=== PATIENT | female | born 1950 | race Caucasian/White ===

== ENCOUNTER 2016-07-23 09:49 | Day surgery (SDC) | payer MEDICARE, OTHER ==
[2016-07-13 09:52] VITALS: BMI 29.2
[~2016-07-23 09:49] MED LIST: HEPARIN SODIUM,PORCINE 5,000 UNIT/ML 1 ML VIAL SQ ONE; LACTATED RINGERS 1,000 ML IV SCH; LIDOCAINE 1% 20 ML VIAL (10MG/ML) FOR IV START INTRADERMA PRN; ONDANSETRON 4 MG/2 ML VIAL IVP ONE; ceFAZolin 2 GM in SODIUM CHLORIDE 0.9% 100 ML IVPB ONE
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
[2016-07-23] MEDS ORDERED: ceFAZolin 1,000 MG VIAL ONE (10:40)
[2016-07-23] MEDS ORDERED: NEOSTIGMINE 1 MG/ML 10 ML VIAL ONE (10:40)
[2016-07-23] MEDS ORDERED: SUCCINYLCHOLINE CHLORIDE 100 MG/5 ML SYR IV ONE (10:40)
[2016-07-23] MEDS ORDERED: PROPOFOL 10 MG/ML 20 ML VIAL IV ONE (10:40)
[2016-07-23] MEDS ORDERED: SODIUM CHLORIDE 0.9% 100 ML BAG ONE (10:40)
[2016-07-23] MEDS ORDERED: fentaNYL (PF) 50 MCG/ML 2 ML AMP ONE (10:40)
[2016-07-23] MEDS ORDERED: GLYCOPYRROLATE 0.2 MG/ML 2 ML VIAL ONE (10:40)
[2016-07-23] MEDS ORDERED: ROCURONIUM BROMIDE 10 MG/ML 10 ML VIAL IV ONE (10:40)
[2016-07-23] MEDS ORDERED: MIDAZOLAM 2 MG/2 ML VIAL ONE (10:40)
[2016-07-23] MEDS ORDERED: BUPIVACAIN-EPI 0.25%-1:200,000 30 ML VIAL SQ ONE (11:08)
--- NOTE | 2016-07-23 11:30 | P.OP ---
Date of Procedure: 07/23/16 Preoperative Diagnosis: Cholecystitis Postoperative Diagnosis: Cholecystitis Procedure(s) Performed: Laparoscopic cholecystectomy Anesthesia: DISHA Surgeon: Iftikhar Guallpa Estimated Blood Loss (ml): 5 Pathology: other (Gallbladder) Condition: stable Disposition: PACU Description of Procedure: The patient was placed on the operating table. The patient received a general endotracheal tube anesthesia. The patients abdomen was prepped and draped in the usual sterile fashion. Through an infraumbilical stab incision, the fascia of the anterior abdominal wall was grasped with a pair of Kochers and then the Veress needle was placed in the peritoneal cavity. Position of the Veress needle was confirmed with positive drop test. The abdomen was then insufflated. After adequate insufflation, the 10 mm trocar was placed in the peritoneal cavity. Following this the laparoscope was placed in the peritoneal cavity. The patient was placed in the head-up, right side up position and then a 5 mm trocar was placed in the right lateral and right subcostal position under direct visualization. A 8 mm trocar was placed in the epigastric position. The gallbladder was grasped in the fundus and infundibulum. Traction on the gallbladder was placed in the lateral and the cephalad positions. The triangle of Calot was visualized.. The cystic duct was bluntly dissected until the union of the cystic duct and common bile duct was seen. The cystic duct was then divided and sealed with the Harmonic scissors. A PDS Endoloop was then placed throughout the cystic duct stump. The cystic artery divided and sealed with the Harmonic scissors. The gallbladder was then removed from the liver bed using Harmonic scissors. The gallbladder was then extracted through the epigastric port site. Operative field was checked for any bleeding spots and Harmonic scissors was used to coagulate the liver bed. The abdomen was irrigated. The trocars were removed. The skin was closed using interrupted 3-0 Vicryl suture. Dermabond dressing were applied. The patient tolerated the procedure well.
[2016-07-23 11:51] VITALS: TEMP 97.1
[2016-07-23] MEDS: HYDROmorphone 1 MG/ML 1 ML SYRINGE IVP PRN ×2 (11:55→12:10)
[2016-07-23] MEDS ORDERED: LACTATED RINGERS 1,000 ML IV ONE (12:00)
[2016-07-23] MEDS: MIDAZOLAM 2 MG/2 ML VIAL IV PRN ×2 (12:15→12:23)
[2016-07-23] MEDS ORDERED: KETOROLAC 30 MG/ML 1 ML VIAL IVP ONE (13:12)
[2016-07-23 13:21] VITALS: RESP 16
[2016-07-23 14:11] VITALS: BP 157/81; PULSE 53
== END 2016-07-23 14:21 | disposition home or self-care (01) ==
LOC: OR 09:49
PROVIDERS: ATTEND Surgery
DX: K81.1 Chronic cholecystitis (principal); K21.9 Gastro-esophageal reflux disease without esophagitis; I25.10 Atherosclerotic heart disease of native coronary artery without angina pectoris; I10 Essential (primary) hypertension; M79.7 Fibromyalgia; J44.9 Chronic obstructive pulmonary disease, unspecified; F17.210 Nicotine dependence, cigarettes, uncomplicated; M19.90 Unspecified osteoarthritis, unspecified site; F41.9 Anxiety disorder, unspecified; I73.9 Peripheral vascular disease, unspecified; Z79.899 Other long term (current) drug therapy; Z79.02 Long term (current) use of antithrombotics/antiplatelets; Z79.82 Long term (current) use of aspirin; Z88.5 Allergy status to narcotic agent; Z88.8 Allergy status to other drugs, medicaments and biological substances
CPT/HCPCS: 47562; 88304; J2250; J1644; J2710; J2405; J0690; J3010; J1885; J1170; J0330; J2704

== ENCOUNTER → 2016-07-31 | Outpatient (CLI) | payer MEDICARE, OTHER ==
--- NOTE | 2016-08-01 09:31 | BD ---
EXAMINATION TYPE: MG DEXA axial skeleton. DATE OF EXAM: 07/31/2016 7:47 AM COMPARISON: Prior DEXA bone scan report March 17, 2008 CLINICAL HISTORY: z13.820 screen for osteoporosis. Postmenopausal female PT IN A WHEELCHAIR Height: 60 Weight: 167 FRAX RISK QUESTIONS: Alcohol (3 or more units per day): NO Family History (Parent hip fracture): NO Glucocorticoids (More than 3mos): YES (Ex: prednisone, prednisolone, methylprednisolone, dexamethasone, and hydrocortisone). History of Fracture in Adulthood: YES Secondary Osteoporosis: NO 1. Type 1 Diabetes: NO 2. Hyperthyroidism: NO 3. Menopause before 45: ES 4. Malnutrition: NO 5. Chronic liver disease: NO Rheumatoid Arthritis: NO Current Tobacco Use: YES RISK FACTORS HISTORY OF: Other Fractures since Age 51: RT HAND When: > 50 YRS Family History of Osteoporosis: YES, MOTHER Smoke tobacco: YES, 1/2 PAC DAILY Drink Alcohol: NONE Active: MUCH SHE CAN BE, AROUND HOUSE Diet low in dairy products/other sources of calcium: NO Postmenopausal woman: HYST AT AGE 36 YRS OLD Lost more than 2 inches in height since high school: YES Adrenal Insufficiency: NO MEDICATIONS: Prednisone or other steroids: ALLERGIC TO STEROIDS, VENTOLIN INHALER, NEBULIZER TREATMENTS How Long: COPD FOR ABOUT 10+ YRS Additional Medications: BP MEDS, VALIUM PRN, VIT D3, Additional History: COPD, SPINAL CONDITIONS, PAIN, EXAM MEASUREMENTS: Bone mineral densitometry was performed using the saambaa System. Bone mineral density as measured about the Lumbar spine is: ----- L1-L4(G/cm2): 1.024 T Score Values are as follows: ----- L1: -1.7 ----- L2: -1.3 ----- L3: -1.8 ----- L4: -0.6 ----- L1-L4: -1.3 Bone mineral density has: Decreased -4.1% since study of: 03.17.2008 Bone mineral density about the R hip (g/cm2): 0.786 Bone mineral density about the L hip (g/cm2): 0.731 T Score values are as follows: -----R Neck: -1.8 -----L Neck: -2.2 -----R Intertrochanter: -1.2 -----L Intertrochanter: -1.9 Bone mineral density has: Decreased -0.2% since study of: 03.17.2008 FRAX%'S: FOR MAJOR OSTEOPOROTIC FX: 19.0%.....FOR HIP FX: 5.3% PROBABILITY OF FX IN 10 Y RS TIME IMPRESSION: Osteopenia (T Score between -2.5 and -1 as noted by T score values in the left hip and low back. Bone density is decreased are diminished from 2007 study. There is slightly increased risk of fracture an d the patient may be considered for treatment. Re-Screen 1-2 years. NOTE: T-SCORE=SD OF THE YOUNG ADULT MEAN.
--- NOTE | 2016-08-01 14:22 | MM ---
Reason for exam: screening (asymptomatic). Last mammogram was performed 2 years and 8 months ago. History: Patient is postmenopausal. Excisional biopsy of the right breast. Physical Findings: A clinical breast exam by your physician is recommended on an annual basis and results should be correlated with mammographic findings. MG 3D Screening Mammo W/Cad Bilateral CC and MLO view(s) were taken. Prior study comparison: December 01, 2013, bilateral MG screening mammo w CAD. March 30, 2008, bilateral digital screening mammogram. There are scattered fibroglandular densities. Finding: There are typically benign round calcifications in both breasts. There is no discrete abnormality. ASSESSMENT: Benign, BI-RAD 2 RECOMMENDATION: Routine screening mammogram of both breasts in 1 year.
== END | disposition home or self-care (01) ==
LOC: RADMAMWWP 07:06
PROVIDERS: ATTEND Family Medicine
DX: Z13.820 Encounter for screening for osteoporosis (principal); Z12.31 Encounter for screening mammogram for malignant neoplasm of breast; M85.80 Other specified disorders of bone density and structure, unspecified site
CPT/HCPCS: 77080; 77063; G0202

== ENCOUNTER 2016-08-14 06:16 | Day surgery (SDC) | payer MEDICARE, OTHER ==
[2016-08-02 15:51] VITALS: BMI 32.0
[~2016-08-14 06:16] MED LIST changes: +DEXAMETHASONE SOD PHOSPHATE 10 MG/ML 1 ML VIAL IV ONE; -LIDOCAINE 1% 20 ML VIAL (10MG/ML) FOR IV START INTRADERMA PRN; -ONDANSETRON 4 MG/2 ML VIAL IVP ONE
[2016-08-14] MEDS ORDERED: LIDOCAINE 1% 20 ML VIAL (10MG/ML) FOR IV START INTRADERMA ONE (07:25)
[2016-08-14] MEDS: ONDANSETRON 4 MG/2 ML VIAL IVP ONE ×2 (07:29→09:21)
[2016-08-14 07:43] LABS: Basophils % (A) 0 %; CH 30.6; CHCM 32.9; Eosinophils # (A) 0.4 k/uL (0-0.7); Eosinophils % (A) 4 %; HDW 2.24; HGB 13.3 gm/dL (11.4-16.0); Luc # (Auto) 0.21; Luc % (Auto) 3; Lymphocytes # (A) 2.5 k/uL (1.0-4.8); Lymphocytes % (A) 32 %; MCH 30.3 pg (25.0-35.0); MCHC 32.5 g/dL (31.0-37.0); MCV 93.4 fL (80.0-100.0); Monocytes # (A) 0.4 k/uL (0-1.0); Monocytes % (A) 6 %; Neutrophils # (A) 4.4 k/uL (1.3-7.7); Neutrophils % (A) 55 %; RBC 4.39 m/uL (3.80-5.40); RDW 13.3 % (11.5-15.5); WBC 7.9 k/uL (3.8-10.6); WBC (Perox) 7.74
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
[2016-08-14] MEDS ORDERED: GLYCOPYRROLATE 0.2 MG/ML 2 ML VIAL ONE (07:55)
[2016-08-14] MEDS ORDERED: NEOSTIGMINE 1 MG/ML 10 ML VIAL ONE (07:55)
[2016-08-14] MEDS ORDERED: MIDAZOLAM 2 MG/2 ML VIAL ONE (07:55)
[2016-08-14] MEDS ORDERED: PROPOFOL 10 MG/ML 20 ML VIAL IV ONE (07:55)
[2016-08-14] MEDS ORDERED: SUCCINYLCHOLINE CHLORIDE 100 MG/5 ML SYR IV ONE (07:55)
[2016-08-14] MEDS ORDERED: fentaNYL (PF) 50 MCG/ML 2 ML AMP ONE (07:55)
[2016-08-14] MEDS ORDERED: LIDOCAINE 1% INJ 10MG/ML (20 ML MDV) ONE (07:55)
[2016-08-14] MEDS ORDERED: ROCURONIUM BROMIDE 10 MG/ML 10 ML VIAL IV ONE (07:55)
[2016-08-14] MEDS ORDERED: BUPIVACAIN-EPI 0.25%-1:200,000 30 ML VIAL SQ ONE (08:30)
[2016-08-14] MEDS ORDERED: ONDANSETRON 4 MG/2 ML VIAL IVP PRN (09:03)
[2016-08-14] MEDS ORDERED: HYDROcodone/APAP 5-325MG 1 EACH TAB PO PRN (09:03)
[2016-08-14] MEDS ORDERED: LACTATED RINGERS 1,000 ML IV ONE (09:03)
[2016-08-14] MEDS ORDERED: NALOXONE 0.4 MG/ML 1 ML VIAL IV PRN (09:03)
--- NOTE | 2016-08-14 09:03 | P.OP ---
Date of Procedure: 08/14/16 Preoperative Diagnosis: Gerd Postoperative Diagnosis: Gerd Procedure(s) Performed: Laparoscopic lysis of adhesion Laparoscopic Chavo fundoplication Anesthesia: DISHA Surgeon: Iftikhar Guallpa Estimated Blood Loss (ml): 5 Pathology: none sent Condition: stable Disposition: PACU Description of Procedure: The was placed on the operating table in the supine position. The patient received general anesthesia. And was placed in dorsal lithotomy position. The patient was prepped and draped in the usual sterile fashion. The skin incision sites were anesthetized with 1% local Xylocaine. The skin was incised in the left periumbilical area and then using a blade less 5 mm trocar under direct visualization panel cavity was entered. After adequate insufflation the laparoscope was then placed into the peritoneal cavity. Next a 5 mm trochars placed in the right epigastric position. Another 5 millimeter trocar the right lateral position. Another 5 millimeter trocar in the left lateral position a 5 mm trocar is placed in the left epigastric position. And then the initial 5 mm trocar was exchanged for a 10 mm trocar. There were dense adhesions across the midline. These were lysed using the Harmonic scissors. The left lateral lobe liver was retracted. The hernia was seen. The crural defect was then dissected using the Harmonic scissors device. A 360 crural dissection was performed the esophagus stomach was reduced back into the peritoneal Cavity. The crural defect was then closed using 2-0 Ethibond suture. Next the fundus of the stomach was mobilized using the [place] scissors device. and then a 58-Wallisian bougie dilator was placed oropharynx passed into the esophagus and stomach the fundal plication wrap was then performed by grasping the fundus posteriorly and bringing it around the esophagus and stomach fundoplication was then performed using 2-0 Ethibond suture. Care was taken that the fundal location rested over top of the intra- abdominal esophagus. There was no injury seen to the stomach or esophagus. The dilator was then withdrawn. The abdomen was irrigated there is no bleeding seen. The trochars were then withdrawn and then skin incision sites were closed using 3-0 Monocryl suture Steri-Strips are applied. Patient thought procedure well and sent to recovery room in stable condition.
[2016-08-14] MEDS: HYDROmorphone 1 MG/ML 1 ML SYRINGE IVP PRN ×5 (09:15→20:39)
[2016-08-14 09:23] VITALS: RESP 16
[2016-08-14] MEDS ORDERED: PROMETHAZINE INJ 25 MG/ML 1 ML VIAL IVPB ONE (09:35)
[2016-08-14] MEDS ORDERED: LABETALOL 200 MG TAB PO SCH (10:00)
[2016-08-14] MEDS ORDERED: DIAZEPAM 5 MG TAB PO PRN (10:00)
[2016-08-14] MEDS ORDERED: LABETALOL SYRINGE 5 MG/ML IVP ONE (10:12)
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
--- NOTE | 2016-08-14 16:00 | FL ---
EXAMINATION TYPE: FL UGI w esophagus DATE OF EXAM: 08/14/2016 3:55 PM COMPARISON: NONE HISTORY: Post Juan Luis fundoplication TECHNIQUE: A single contrast UGI study is performed. FINDINGS:. There is no evidence of obstruction or extravasation. 28 seconds of fluoroscopy utilized. Barium pass ed immediately from the esophagus into the stomach. Subsegmental changes at both lung bases may be related to postoperative atelectasis. Small amount of free air postoperatively not entirely excluded. IMPRESSION: 1. No evidence of obstruction or extravasation. 2. Basilar suspected atelectasis.
[2016-08-14] MEDS: LABETALOL 200 MG TAB PO SCH ×2 (16:25→23:20)
[2016-08-14 18:27] VITALS: PULSE 90
[2016-08-14] MEDS ORDERED: HEPARIN SODIUM,PORCINE 5,000 UNIT/ML 1 ML VIAL SQ SCH (21:00)
[2016-08-14] MEDS ORDERED: CILOSTAZOL 100 MG TAB PO SCH (21:00)
[2016-08-14 22:43] VITALS: TEMP 97.2
[2016-08-14 23:12] VITALS: BP 121/72
== END 2016-08-14 23:59 | disposition home or self-care (01) ==
LOC: OR 06:16 → 6PED 08:59 → 3SUR 22:06 → OR 23:59
PROVIDERS: ATTEND Surgery
DX: K21.0 Gastro-esophageal reflux disease with esophagitis (principal); K66.0 Peritoneal adhesions (postprocedural) (postinfection); I10 Essential (primary) hypertension; I25.10 Atherosclerotic heart disease of native coronary artery without angina pectoris; M79.7 Fibromyalgia; M19.90 Unspecified osteoarthritis, unspecified site; I70.209 Unspecified atherosclerosis of native arteries of extremities, unspecified extremity; M81.0 Age-related osteoporosis without current pathological fracture; L20.9 Atopic dermatitis, unspecified; F17.210 Nicotine dependence, cigarettes, uncomplicated; Z79.02 Long term (current) use of antithrombotics/antiplatelets; Z79.899 Other long term (current) drug therapy; Z88.5 Allergy status to narcotic agent; Z88.8 Allergy status to other drugs, medicaments and biological substances; Z88.2 Allergy status to sulfonamides
CPT/HCPCS: 43280; 49329; 85025; 74240; J2250; J1644; J1100; J2550; J2710; Q9967; J0690; J2405; J2001; J3010; J1170; J0330; J2704

== ENCOUNTER → 2018-12-17 | Outpatient (CLI) | payer MEDICARE ==
--- NOTE | 2018-12-17 15:56 | BD ---
EXAMINATION TYPE: Axial Bone Density DATE OF EXAM: 12/17/2018 COMPARISON: NONE CLINICAL HISTORY: post menopausal Height: 5' Weight: 158 FRAX RISK QUESTIONS: History of Fracture in Adulthood: y Secondary Osteoporosis: Current Tobacco Use: y RISK FACTORS HISTORY OF: Spine Fracture: C5-C6 When: 1990 Surgery to Spine :/C5-C6 When: 1990 Family History of Osteoporosis: y Postmenopausal woman: y MEDICATIONS: Additional Medications: blood pressure, heart Additional History: EXAM MEASUREMENTS: Bone mineral densitometry was performed using the [employer] System. Bone mineral density as measured about the Lumbar spine is: ----- L1-L4(G/cm2): 0.990 T Score Values are as follows: ----- L2: -2.0 ----- L3:-1.5 ----- L4: -1.4 ----- L1-L4: -1.6 Bone mineral density about the R hip (g/cm2): 0.925 Bone mineral density about the L hip (g/cm2): 0.854 T Score values are as follows: -----R Neck: -2.0 -----L Neck: -2.0 -----R Total: -0.7 -----L Total: -1.2 IMPRESSION: Osteopenia (T Score between -2.5 and -1). There is slightly increased risk of fracture and the patient may be considered for treatment. Re-Screen 2-5 years. NOTE: T-SCORE=SD OF THE YOUNG ADULT MEAN.
--- NOTE | 2018-12-19 15:29 | MM ---
Reason for exam: screening (asymptomatic). Last mammogram was performed 2 years and 5 months ago. History: Patient is postmenopausal. Excisional biopsy of the right breast. Physical Findings: A clinical breast exam by your physician is recommended on an annual basis and results should be correlated with mammographic findings. MG Screening Mammo w CAD Bilateral CC and MLO view(s) were taken. Prior study comparison: July 31, 2016, bilateral MG 3d screening mammo w/cad. December 01, 2013, bilateral MG screening mammo w CAD. The breast tissue is heterogeneously dense. This may lower the sensitivity of mammography. No significant changes when compared with prior studies. ASSESSMENT: Benign, BI-RAD 2 RECOMMENDATION: Routine screening mammogram of both breasts in 1 year.
== END | disposition home or self-care (01) ==
LOC: RADMAMWWP 13:16
PROVIDERS: ATTEND Family Medicine
DX: Z12.31 Encounter for screening mammogram for malignant neoplasm of breast (principal); M85.851 Other specified disorders of bone density and structure, right thigh; M85.852 Other specified disorders of bone density and structure, left thigh; M85.88 Other specified disorders of bone density and structure, other site; Z78.0 Asymptomatic menopausal state
CPT/HCPCS: 77067; 77080

== ENCOUNTER 2022-07-24 22:15 | Inpatient (IN) | payer MEDICARE ==
[2022-07-24] MEDS ORDERED: IPRATROPIUM 0.5 MG/2.5 ML NEBU INHALATION STA (22:16)
[2022-07-24] MEDS ORDERED: ALBUTEROL NEBULIZED 2.5 MG/3 ML INHALATION STA (22:16)
[2022-07-24] MEDS ORDERED: SODIUM CHLORIDE 0.9% 1,000 ML IV STA ×2 (22:16→22:21)
[2022-07-24] MEDS ORDERED: HYDROmorphone 0.5 MG/0.5 ML SYRINGE IVP STA (22:21)
[2022-07-24 22:23] LABS: Glucose,Whole Blood 215 mg/dL (70-110)
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
[2022-07-24] MEDS ORDERED: NITROGLYCERIN-D5W PMX 50 MG in DEXTROSE/WATER 1 250ML.BAG IV ONE (22:32)
[2022-07-24 22:37] LABS: Basophils # (A) 0.2 k/uL (0-0.2); Basophils % (A) 1 %; Eosinophils # (A) 0.1 k/uL (0-0.7); Eosinophils % (A) 1 %; HCT 43.3 % (34.0-46.0); HGB 14.2 gm/dL (11.4-16.0); Lymphocytes # (A) 2.2 k/uL (1.0-4.8); Lymphocytes % (A) 13 %; MCH 31.5 pg (25.0-35.0); MCHC 32.9 g/dL (31.0-37.0); MCV 95.5 fL (80.0-100.0); Mean Platelet Volume 8.4; Monocytes % (A) 6 %; Neutrophils # (A) 13.8 k/uL (1.3-7.7); Neutrophils % (A) 79 %; Platelet Count 359 k/uL (150-450); RBC 4.53 m/uL (3.80-5.40); RDW 12.6 % (11.5-15.5); WBC 17.6 k/uL (3.8-10.6)
[2022-07-24 22:38] LABS: VBG PH 7.32 (7.31-7.41)
[2022-07-24 22:46] LABS: Partial Thromboplastin Time 23.9 sec (22.0-30.0); Prothrombin Time 10.3 sec (9.0-12.0)
[2022-07-24 22:59] LABS: ALT 32 U/L (4-34); AST 31 U/L (14-36); African American GFR (CKD) >90 (>60 ml/min/1.73 sqM); Albumin 4.2 g/dL (3.5-5.0); Alkaline Phosphatase 67 U/L (38-126); Anion Gap 8 mmol/L; Blood Urea Nitrogen 24 mg/dL (7-17); Carbon Dioxide 31 mmol/L (22-30); Chloride 87 mmol/L (98-107); Glucose 207 mg/dL (74-99); Lipase 50 U/L (23-300); Non-African American GFR(CKD) >90 (>60 ml/min/1.73 sqM); Potassium 4.8 mmol/L (3.5-5.1); Sodium 126 mmol/L (137-145); Total Bilirubin 0.5 mg/dL (0.2-1.3); Total Protein 6.6 g/dL (6.3-8.2)
--- NOTE | 2022-07-24 23:27 | CT ---
EXAMINATION TYPE: CT brain wo con DATE OF EXAM: 07/24/2022 COMPARISON: 11/11/2011 HISTORY: AMS CT DLP: 1133.4 mGycm Automated exposure control for dose reduction was used. Images obtained of the brain with no contrast. There is metallic density consistent with aneurysm surgery at the region of the tip of the basilar ar elma. The ventricles have normal size. There is some mild patchy hypodensity in the periventricular w debbie matter and more noticeable in the left cerebral hemisphere. There is no midline shift. No sign o f intracranial hemorrhage. The calvarium is intact. IMPRESSION: There are some white matter hypodensity suggestive of microvascular ischemia and appears new compared to the old exam. Old aneurysm surgery noted.
--- NOTE | 2022-07-24 23:30 | CT ---
EXAMINATION TYPE: CT angio chest DATE OF EXAM: 07/24/2022 COMPARISON: None HISTORY: YUVAL and SOB CT DLP: 1347.1 mGycm Automated exposure control for dose reduction was used. CONTRAST: Performed with IV Contrast, patient injected with 100cc mL of Isovue 370. Images obtained from the thoracic inlet to the diaphragm with the IV contrast. There are 3-D post pro cessed images. There is some mild reticular interstitial density in both lung puentes. Heart is top normal in size. N o pericardial effusion. There are no hilar masses. There is no mediastinal adenopathy. Thoracic aorta is atheromatous. No aneurysm. No evidence of dissection. No evidence of filling defect in the pulmonary arteries. There is some minor spurring in the thoracic spine. Sternum is intact. No retrosternal density. No ev idence of rib fracture. IMPRESSION: No evidence of pulmonary embolism. Minimal reticular interstitial pulmonary density. No suspicious pu lmonary mass.
--- NOTE | 2022-07-24 23:40 | CT ---
EXAMINATION TYPE: CT abdomen pelvis w con DATE OF EXAM: 07/24/2022 COMPARISON: None HISTORY: YUVAL and SOB CT DLP: 1347.1 mGycm Automated exposure control for dose reduction was used. CONTRAST: Performed with IV Contrast, patient injected with 100cc mL of Isovue 370. Images obtained from the diaphragm to the floor the pelvis with the IV contrast. Lung bases are clear. Heart size is normal. No pericardial effusion. Liver spleen stomach and pancrea s appear intact. The bile ducts are not dilated. There clips at the gastroesophageal junction. Gallbl adder appears absent. There is no adrenal mass. Kidneys show satisfactory contrast opacification. No hydronephrosis. Ureter s are not dilated. No retroperitoneal adenopathy. Bladder distends smoothly. There are numerous sigmo id diverticula. No diverticulitis. Appendix not seen. No sign of thickened appendix. There is no mesenteric edema. No ascites or free air. No sign of a bowel obstruction. The lumbar vertebra appear intact with no compression fracture. Facet joints are intact. Bony pelvis is intact. The hip joints are intact. Sacroiliac joints are intact. IMPRESSION: No acute abnormality of the abdomen and pelvis. There is some sigmoid diverticulosis without divertic ulitis. Atherosclerotic vascular disease.
--- NOTE | 2022-07-24 23:41 | XR ---
EXAMINATION TYPE: XR chest 1V portable DATE OF EXAM: 07/24/2022 COMPARISON: 04/17/2016 HISTORY: Chest pain TECHNIQUE: FINDINGS: Heart size is normal. There is mild coarsening of interstitial markings. No heart failure. There are chest leads. Bony thorax is intact. IMPRESSION: No active cardiopulmonary disease. Minimal fibrotic changes. No adverse change overall co mpared to old exam.
[2022-07-25] MEDS ORDERED: NALOXONE 0.4 MG/ML 1 ML VIAL IV PRN (00:34)
[2022-07-25] MEDS ORDERED: ONDANSETRON 4 MG/2 ML VIAL IVP PRN (00:34)
[2022-07-25] MEDS ORDERED: HYDROmorphone 0.5 MG/0.5 ML SYRINGE IVP PRN (00:34)
[2022-07-25] MEDS ORDERED: methylPREDNISolone SOD SUCCI 125 MG/2 ML VIAL IV STA (00:34)
[2022-07-25] MEDS ORDERED: IPRATROPIUM-ALBUTEROL 3 ML NEB INHALATION STA (00:34)
[2022-07-25] MEDS: SODIUM CHLORIDE 0.9% 1,000 ML IV SCH ×2 (03:52→09:32)
[2022-07-25] MEDS: methylPREDNISolone SOD SUCCI 125 MG/2 ML VIAL IV SCH ×3 (06:33→18:15)
[2022-07-25] MEDS ORDERED: hydrALAZINE HCL 20 MG/ML 1 ML VIAL IVP STA (07:48)
[2022-07-25] MEDS ORDERED: hydrALAZINE HCL 20 MG/ML 1 ML VIAL ONE (07:51)
[2022-07-25] MEDS: PANTOPRAZOLE 40 MG/10 ML VIAL IV SCH (08:37)
[2022-07-25] MEDS: hydrALAZINE HCL 50 MG TAB PO SCH ×3 (08:38→21:30)
[2022-07-25] MEDS: ALBUTEROL NEBULIZED 2.5 MG/3 ML INHALATION SCH ×4 (08:52→19:53)
[2022-07-25] MEDS ORDERED: lisinopriL 20 MG TAB PO SCH (09:00)
[2022-07-25] MEDS ORDERED: DEXTROSE 50% SYRINGE 50 ML IVP PRN ×2 (09:25)
[2022-07-25 09:59] LABS: African American GFR (CKD) >90 (>60 ml/min/1.73 sqM); Anion Gap 7 mmol/L; Blood Urea Nitrogen 21 mg/dL (7-17); Carbon Dioxide 31 mmol/L (22-30); Chloride 88 mmol/L (98-107); Glucose 120 mg/dL (74-99); Non-African American GFR(CKD) >90 (>60 ml/min/1.73 sqM); Potassium 4.2 mmol/L (3.5-5.1); Sodium 126 mmol/L (137-145)
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
[2022-07-25] MEDS ORDERED: NITROGLYCERIN SL TABS 0.4 MG TAB SUBLINGUAL PRN (11:28)
[2022-07-25] MEDS: NYSTATIN 100,000 UNIT/ML SUSP 500,000 UNIT/5 ML CUP PO SCH ×3 (12:34→21:45)
[2022-07-25] MEDS ORDERED: guaiFENesin SYRUP 100MG/5ML 200 MG/10 ML CUP PO PRN (13:07)
[2022-07-25] MEDS ORDERED: BENZOCAINE/MENTHOL LOZENG 1 EACH LOZENGE MUCOUS MEM PRN (13:07)
[2022-07-25] MEDS ORDERED: diphenhydrAMINE 25 MG CAP PO PRN (13:08)
[2022-07-25] MEDS: INSULIN ASPART (NovoLOG) 100 UNIT/ML VIAL SQ SCH ×3 (13:31→21:30)
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
[2022-07-25 18:12] LABS: Glucose,Whole Blood 213 mg/dL (70-110)
[2022-07-25] MEDS: SYMBICORT 160-4.5 MCG INHALER INHALATION SCH (19:53)
[2022-07-25 20:28] LABS: Glucose,Whole Blood 181 mg/dL (70-110)
[2022-07-26] MEDS: methylPREDNISolone SOD SUCCI 125 MG/2 ML VIAL IV SCH ×2 (00:26→06:18)
[2022-07-26 04:25] VITALS: TEMP 98.1
[2022-07-26 06:15] LABS: Glucose,Whole Blood 151 mg/dL (70-110)
[2022-07-26] MEDS: INSULIN ASPART (NovoLOG) 100 UNIT/ML VIAL SQ SCH ×2 (06:33→13:36)
[2022-07-26] MEDS: SYMBICORT 160-4.5 MCG INHALER INHALATION SCH ×2 (07:41→07:52)
[2022-07-26] MEDS: ALBUTEROL NEBULIZED 2.5 MG/3 ML INHALATION SCH ×2 (07:41→11:02)
[2022-07-26] MEDS ORDERED: lisinopriL 20 MG TAB PO SCH (09:00)
[2022-07-26 09:19] LABS: Basophils # (A) 0.1 k/uL (0-0.2); Basophils % (A) 1 %; Eosinophils % (A) 0 %; HCT 43.7 % (34.0-46.0); HGB 14.2 gm/dL (11.4-16.0); Lymphocytes # (A) 0.8 k/uL (1.0-4.8); Lymphocytes % (A) 7 %; MCH 31.2 pg (25.0-35.0); MCHC 32.5 g/dL (31.0-37.0); MCV 95.9 fL (80.0-100.0); Monocytes # (A) 0.7 k/uL (0-1.0); Monocytes % (A) 6 %; Neutrophils # (A) 10.5 k/uL (1.3-7.7); Neutrophils % (A) 86 %; Platelet Count 291 k/uL (150-450); RBC 4.56 m/uL (3.80-5.40); RDW 13.1 % (11.5-15.5); WBC 12.2 k/uL (3.8-10.6)
[2022-07-26 09:39] LABS: African American GFR (CKD) >90 (>60 ml/min/1.73 sqM); Anion Gap 5 mmol/L; Blood Urea Nitrogen 26 mg/dL (7-17); Calcium 8.8 mg/dL (8.4-10.2); Carbon Dioxide 36 mmol/L (22-30); Chloride 89 mmol/L (98-107); Glucose 171 mg/dL (74-99); Magnesium 2.1 mg/dL (1.6-2.3); Non-African American GFR(CKD) >90 (>60 ml/min/1.73 sqM); Phosphorus 4.2 mg/dL (2.5-4.5); Potassium 3.9 mmol/L (3.5-5.1); Sodium 130 mmol/L (137-145)
[2022-07-26] MEDS: hydrALAZINE HCL 50 MG TAB PO SCH (09:58)
[2022-07-26] MEDS: PANTOPRAZOLE 40 MG/10 ML VIAL IV SCH (09:58)
[2022-07-26] MEDS: NYSTATIN 100,000 UNIT/ML SUSP 500,000 UNIT/5 ML CUP PO SCH (09:58)
[2022-07-26 11:32] LABS: Glucose,Whole Blood 140 mg/dL (70-110)
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
--- NOTE | 2022-07-26 12:29 | P.PN ---
Subjective Progress Note Date: 07/26/22 HISTORY OF PRESENT ILLNESS: This is a 72-year-old female with a past medical history significant for COPD and hypertension. Patient does not follow with a machine trimmer. We have been asked to see the patient in consultation for hypertension. Patient examined at the bedside. Patient states she was just discharged from [facility] yesterday. She states she was admitted there due to SOB, COPD, and elevated blood pressure. Patient presents back to the hospital with SOB. Patients blood pressure was significantly elevated upon arrival to the emergency room with a reading of 255/128. Patient's blood pressure this morning remains elevated although improved with a recent reading of 162/71. The patient has multiple ALLERGIES listed to antihypertensive medications. The patient reported that she was recently taking lisinopril and hydralazine which she tolerated well with no adverse side effects. * EKG reveals sinus mechanism with no signs of acute ischemia * Chest xray no active cardio pulmonary disease. * Laboratory data: WBC 17.6. Hemoglobin 14.2. Platelet count 359. Sodium 126. Potassium 4.2. BUN 21. Creatinine 0.55. Troponin negative 3 per BNP 1270. * Current home cardiac medications include: medication list not updated on the time of this dictation * Patient had an echocardiogram performed at [facility] on 07/23/2022 revealing ejection fraction 55-60%, mild to moderate aortic regurgitation, mild mitral regurgitation, mild tricuspid regurgitation 07/26/2022 Patient examined this morning at the bedside. Patient denies chest pain or pressure. She denies shortness of breath. Patient's blood pressure is improved today with a systolic in the 140s. Patient is hoping to be discharged home today PHYSICAL EXAM: VITAL SIGNS: Reviewed. GENERAL: Well-developed in no acute distress. HEENT: Head is normocephalic. Pupils are equal, round. Sclerae anicteric. Mucous membranes of the mouth are moist. Neck supple. No JVD or thyromegaly LUNGS: Respirations even and unlabored. Lungs essentially clear to auscultation bilaterally. HEART: Regular rate and rhythm. S1 and S2 heard. + Systolic murmur. ABDOMEN: Soft. Nondistended. Nontender. EXTREMITIES: Normal range of motion. No clubbing or cyanosis. Peripheral pulses intact. No lower extremity edema NEUROLOGIC: Awake and alert. Oriented x 3. ASSESSMENT: Shortness of breath Acute COPD exacerbation Hypertensive emergency, improving Hyponatremia Former nicotine dependence PLAN: Continue current cardiac medications Continue to monitor blood pressure Patient is stable for discharge home today from a cardiac standpoint Nurse practitioner note has been reviewed by physician. Signing provider agrees with the documented findings, assessment, and plan of care. Objective - Vital Signs Vital signs: Vital Signs Temp 98.1 F 07/26/22 04:00 Pulse 88 07/26/22 11:13 Resp 18 07/26/22 04:00 BP 144/70 07/26/22 04:00 Pulse Ox 96 07/26/22 09:30 FiO2 30 07/25/22 08:52 Intake & Output 07/25/22 07/26/22 07/26/22 18:59 06:59 18:59 Intake Total 240 Output Total 900 Balance -660 Intake: Oral 240 Output: Urine 900 Other: Voiding Method Toilet # Voids 2 2 # Bowel Movements 1 - Labs CBC & Chem 7: 07/26/22 08:31 07/26/22 08:31 Labs: Abnormal Lab Results - Last 24 Hours (Table) 07/24/22 07/25/22 07/25/22 Range/Units 22:32 18:09 20:26 WBC (3.8-10.6) k/uL Neutrophils # (1.3-7.7) k/uL Lymphocytes # (1.0-4.8) k/uL Sodium (137-145) mmol/L Chloride (98-107) mmol/L Carbon Dioxide (22-30) mmol/L BUN (7-17) mg/dL Glucose (74-99) mg/dL POC Glucose (mg/dL) 213 H 181 H (70-110) mg/dL Hemoglobin A1c 6.1 H (0.0-6.0) % 07/26/22 07/26/22 07/26/22 Range/Units 06:12 08:31 08:31 WBC 12.2 H (3.8-10.6) k/uL Neutrophils # 10.5 H (1.3-7.7) k/uL Lymphocytes # 0.8 L (1.0-4.8) k/uL Sodium 130 L (137-145) mmol/L Chloride 89 L (98-107) mmol/L Carbon Dioxide 36 H (22-30) mmol/L BUN 26 H (7-17) mg/dL Glucose 171 H (74-99) mg/dL POC Glucose (mg/dL) 151 H (70-110) mg/dL Hemoglobin A1c (0.0-6.0) % 07/26/22 Range/Units 11:31 WBC (3.8-10.6) k/uL Neutrophils # (1.3-7.7) k/uL Lymphocytes # (1.0-4.8) k/uL Sodium (137-145) mmol/L Chloride (98-107) mmol/L Carbon Dioxide (22-30) mmol/L BUN (7-17) mg/dL Glucose (74-99) mg/dL POC Glucose (mg/dL) 140 H (70-110) mg/dL Hemoglobin A1c (0.0-6.0) %
[2022-07-26 14:16] VITALS: BP 173/94; PULSE 82; RESP 20
--- NOTE | 2022-07-26 16:45 | P.DS ---
Providers Date of admission: 07/25/22 00:36 Attending physician: Mansoor Simmons Consults: 07/25/22 00:34 Consult Physician Routine Consulting Provider: Venkat Dumont Consult Reason/Comments: known Do you want consulting provider notified?: Yes Consult Physician Routine Consulting Provider: Elsi Doss Consult Reason/Comments: HTN Do you want consulting provider notified?: Yes Primary care physician: Stated None Hospital Course: Final Diagnosis Acute hypoxemic respiratory failure secondary to COPD exacerbation currently on 3L nasal cannula which will discharge home with oxygen. Hypertension with urgency, improved Oral thrush Hyponatremia likely from being on diuretics she was discharged on chlorthalidone from [facility] Hyperglycemia History of COPD Former smoker Full Code Discharge Disposition Patient is stable for discharge home with close follow up recommended. She is currently re-establishing care with her prior PCP Dr. Nino Awad and has follow up with him scheduled on 08/01/22. Patient has an appointment made with Dr. Hill on 08/10/22 at 945. She is discharged on 2 to 3 L of home oxygen and has been started on symicort BID. Recommend for patient to remain off hydrochlorothiazide at this time secondary to patient developing hyponatremia. She will continue oral steroid taper which she began yesterday for prior hospital discharge. Patient will continue oral nystatin QID for oral thrush as well. Educated on importance of oral care after using inhalers. Repeat labs in 2 to 3 days. Hospital Course This is a 72 year old female who follows with Dr. Nino Awad down in [place]. States that recently she has lost 2 primary care providers and is in the process of re-establishing care. 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 Reports quitting smoking about 1 month ago, and carries a 50 pack year history. Presents to the hospital with complaints of difficulty breathing. She was significatly short of breath on presentation, weak and appeared to have altered mental status. She was recently treated at [facility] for COPD and hypertension and was discharged home on blood pressure medication which she states she is allergic too. She has had reaction to labetolol in the past and states she was D/Cd on carvedilol which she states after taking she was unable to breath and called EMS. She initially required BiPAP with FiO2 of 60% and was able to be weaned down to nasal cannula 2 to 3 L which is what she was discharged home on from the hospital yesterday. Brain CT was done showing white matter hypodensity suggestive of microvascular ischemia which appears new. CT Angiography of the chest was done and negative for pulmonary embolism. Abdominal/pelvis CT negative for acute changes, sigmoid diverticulosis without diverticulitis. Chest xray is negative for active disease, showing minimal fibrotic changes. She had white count of 17 on presentation, sodium of 126, metabolic acidosis, and blood glucose in the 200s. Troponin level negative x 3, proBNP 1270. Influenza, RSV, Covid negative. Her blood pressure on presentation was found to be in the 200s systolic. She was resumed on home blood pressure medications and carvedilol and hydrochlorothiazide have been discontinued. She received IV steroids and pulmonary services started the patient on budesonide BID. Her labs had improved white count down to 12.2, sodium 130, blood glucose 120s. Patient was evaluated by cardiology and pulmonary services and cleared for discharge home. 07/26/2022 Patient evaluated today ambulating in room with family on bedside. She has continued on 3L nasal cannula with improvement in symptoms. No chest pain reported, minimal shortness of breath with activity, none at rest. Cough improved. Denies fever /chills. Her lungs are clear today, no wheezing or crackles noted today. She is alert x 3 and focal neurological exam is negative. She will continue on oral steroid taper and inhalers and follow up with pulmonary services in the office for further work up and pulmonary function testing. Labs have improved. Blood pressure 144/70. Discharge home with the above mentioned recommendations. Please see medication recommendation for a list of current medication. Thank you for allowing us to participate in the care of this patient. The impression and plan of care has been dictated by Monserrat Giordano Nurse Practitioner as directed. Dr. Oleg MD I have performed a history and physical examination and medical decision making of this patient, discussed the same with the dictator, and agree with the dictators assessment and plan as written, documented as a scribe. Based on total visit time, I have performed more than 50% of this visit. Patient Condition at Discharge: Stable Plan - Discharge Summary Discharge Rx Participant: No New Discharge Prescriptions: New hydrALAZINE HCL [Apresoline] 50 mg PO TID #90 tab diphenhydrAMINE [Benadryl] 25 mg PO TID PRN cap PRN Reason: Allergy Symptoms Benzocaine/Menthol Lozeng [Cepacol lozenge] 1 each MUCOUS MEM Q4HR PRN lozenge PRN Reason: Cough Budesonide-Formot 160-4.5 Mcg [Symbicort 160-4.5 Mcg Inhaler] 2 puff INHALATION RT-BID #1 each Continue Albuterol Inhaler [Ventolin Hfa Inhaler] 1 - 2 puff INHALATION Q6HR PRN PRN Reason: Shortness Of Breath Nystatin 100,000 Unit/ml Susp [Mycostatin Oral Susp] 5 ml PO QID Nitroglycerin Sl Tabs [Nitrostat] 0.4 mg SUBLINGUAL Q5M PRN #40 tab PRN Reason: CHEST PAIN predniSONE See Taper PO DIRECTED lisinopriL 40 mg PO DAILY cilostazoL [Pletal] 100 mg PO BID Albuterol Nebulized [Ventolin Nebulized] 2.5 mg INHALATION RT-Q4H PRN PRN Reason: Shortness Of Breath Or Wheezing Discontinued hydrALAZINE HCL [Apresoline] 100 mg PO Q8H carvediloL 25 mg PO BID Chlorthalidone 25 mg PO DAILY Discharge Medication List Albuterol Inhaler [Ventolin Hfa Inhaler] 1 - 2 puff INHALATION Q6HR PRN 04/17/16 [History] Albuterol Nebulized [Ventolin Nebulized] 2.5 mg INHALATION RT-Q4H PRN 07/25/22 [History] Nystatin 100,000 Unit/ml Susp [Mycostatin Oral Susp] 5 ml PO QID 07/25/22 [Histo ry] cilostazoL [Pletal] 100 mg PO BID 07/25/22 [History] lisinopriL 40 mg PO DAILY 07/25/22 [History] predniSONE See Taper PO DIRECTED 07/25/22 [History] Benzocaine/Menthol Lozeng [Cepacol lozenge] 1 each MUCOUS MEM Q4HR PRN lozenge 07/26/22 [Rx] Budesonide-Formot 160-4.5 Mcg [Symbicort 160-4.5 Mcg Inhaler] 2 puff INHALATION RT-BID #1 each 07/26/22 [Rx] Nitroglycerin Sl Tabs [Nitrostat] 0.4 mg SUBLINGUAL Q5M PRN #40 tab 07/26/22 [Rx] diphenhydrAMINE [Benadryl] 25 mg PO TID PRN cap 07/26/22 [Rx] hydrALAZINE HCL [Apresoline] 50 mg PO TID #90 tab 07/26/22 [Rx] Follow up Appointment(s)/Referral(s): Олег Hill MD [STAFF PHYSICIAN] - 08/10/22 9:45 am [facility] [NON-STAFF] - [facility] [NON-STAFF] - Nino Awad DO [Doctor of Osteopathic Medicine] - 08/01/22 Ambulatory/Diagnostic Orders: Basic Metabolic Panel [LAB.AMB] Time Frame: 3 Days, Location: None Selected Complete Blood Count w/diff [LAB.AMB] Time Frame: 3 Days, Location: None Selected Patient Instructions/Handouts: COPD (Chronic Obstructive Pulmonary Disease) (DC) Activity/Diet/Wound Care/Special Instructions: Discharged home with home oxygen already in place. Discharge Disposition: HOME SELF-CARE
== END 2022-07-26 15:15 | disposition home or self-care (01) | DRG 190 ==
LOC: EC 22:15 → 3SCARD 07-25 00:36
PROVIDERS: ADMIT Hospitalist; ATTEND Hospitalist
PROC: 5A09357 Assistance with Respiratory Ventilation, Less than 24 Consecutive Hours, Continuous Positive Airway Pressure (ICD-10-PCS; principal; 2022-07-24)
DX: J44.1 Chronic obstructive pulmonary disease with (acute) exacerbation (principal); J96.01 Acute respiratory failure with hypoxia; B37.0 Candidal stomatitis; E87.20 Acidosis, unspecified; E87.1 Hypo-osmolality and hyponatremia; I16.1 Hypertensive emergency; I73.9 Peripheral vascular disease, unspecified; I10 Essential (primary) hypertension; K57.30 Diverticulosis of large intestine without perforation or abscess without bleeding; M81.0 Age-related osteoporosis without current pathological fracture; R73.9 Hyperglycemia, unspecified; I08.3 Combined rheumatic disorders of mitral, aortic and tricuspid valves; R01.1 Cardiac murmur, unspecified; F17.210 Nicotine dependence, cigarettes, uncomplicated; Z20.822 Contact with and (suspected) exposure to COVID-19; Z86.79 Personal history of other diseases of the circulatory system; Z79.899 Other long term (current) drug therapy; Z79.82 Long term (current) use of aspirin; Z79.02 Long term (current) use of antithrombotics/antiplatelets; Z88.8 Allergy status to other drugs, medicaments and biological substances; Z88.5 Allergy status to narcotic agent; Z88.2 Allergy status to sulfonamides; Z91.048 Other nonmedicinal substance allergy status
CPT/HCPCS: 36415; 70450; 71045; 71275; 74177; 80048; 80053; 82803; 83036; 83605; 83690; 83735; 83880; 84100; 84484; 85025; 85610; 85730; 87636; 93005; 94640; 94644; 94660; 94760; 96361; 96365; 96366; 96375; 99285

== ENCOUNTER 2022-07-28 14:54 | Emergency (ER) | payer MEDICARE ==
[2022-07-28 15:06] VITALS: PULSE 109; RESP 18; TEMP 98.8
[2022-07-28 16:12] VITALS: BP 143/87
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
== END 2022-07-28 16:34 | disposition home or self-care (01) ==
LOC: EC 14:54
DX: J44.9 Chronic obstructive pulmonary disease, unspecified (principal); Z00.00 Encounter for general adult medical examination without abnormal findings; Z79.51 Long term (current) use of inhaled steroids; Z79.52 Long term (current) use of systemic steroids; Z87.891 Personal history of nicotine dependence; Z88.1 Allergy status to other antibiotic agents; Z88.2 Allergy status to sulfonamides; Z88.5 Allergy status to narcotic agent; Z88.8 Allergy status to other drugs, medicaments and biological substances
CPT/HCPCS: 99284

== ENCOUNTER 2022-07-29 06:37 | Inpatient (IN) | payer MEDICARE ==
[2022-07-29] MEDS ORDERED: ALBUTEROL HFA INHALER INHALATION STA (07:29)
[2022-07-29] MEDS ORDERED: IPRATROPIUM-ALBUTEROL 3 ML NEB INHALATION STA (07:29)
[2022-07-29] MEDS ORDERED: SODIUM CHLORIDE 0.9% 500 ML 500 ML IV STA ×2 (07:29→08:22)
[2022-07-29] MEDS ORDERED: methylPREDNISolone SOD SUCCI 125 MG/2 ML VIAL IV STA (07:29)
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
[2022-07-29 07:59] LABS: Basophils # (A) 0.1 k/uL (0-0.2); Basophils % (A) 1 %; Eosinophils # (A) 0.3 k/uL (0-0.7); Eosinophils % (A) 2 %; HGB 13.9 gm/dL (11.4-16.0); Lymphocytes # (A) 0.6 k/uL (1.0-4.8); Lymphocytes % (A) 3 %; MCH 30.2 pg (25.0-35.0); MCHC 32.3 g/dL (31.0-37.0); MCV 93.4 fL (80.0-100.0); Mean Platelet Volume 8.1; Monocytes # (A) 0.9 k/uL (0-1.0); Monocytes % (A) 5 %; Neutrophils % (A) 89 %; Platelet Count 273 k/uL (150-450); RDW 12.6 % (11.5-15.5)
[2022-07-29 08:32] LABS: VBG PH 7.39 (7.31-7.41)
[2022-07-29 08:39] LABS: ALT 29 U/L (4-34); AST 28 U/L (14-36); African American GFR (CKD) >90 (>60 ml/min/1.73 sqM); Albumin 3.7 g/dL (3.5-5.0); Alkaline Phosphatase 66 U/L (38-126); Anion Gap 3 mmol/L; Blood Urea Nitrogen 16 mg/dL (7-17); Calcium 8.3 mg/dL (8.4-10.2); Carbon Dioxide 39 mmol/L (22-30); Chloride 85 mmol/L (98-107); Glucose 136 mg/dL (74-99); Magnesium 2.1 mg/dL (1.6-2.3); Non-African American GFR(CKD) >90 (>60 ml/min/1.73 sqM); Potassium 3.7 mmol/L (3.5-5.1); Sodium 127 mmol/L (137-145); Total Bilirubin 0.7 mg/dL (0.2-1.3); Total Protein 5.9 g/dL (6.3-8.2)
--- NOTE | 2022-07-29 08:56 | XR ---
EXAMINATION TYPE: XR chest 2V DATE OF EXAM: 07/29/2022 8:11 AM COMPARISON: Chest radiographs from 07/24/2022 TECHNIQUE: XR chest 2V Frontal and lateral views of the chest. CLINICAL INDICATION:Female, 72 years old with history of difficulty breathing; FINDINGS: Lungs/Pleura: There is flattening of the diaphragm with increased lucency of the lungs. Prominent int erstitial lung markings are seen scattered throughout the lungs. No evidence of focal consolidation, pneumothorax or pleural effusion. Pulmonary vascularity: Unremarkable. Heart/mediastinum: Cardiomediastinal silhouette is unremarkable. Musculoskeletal: No acute osseous pathology. IMPRESSION: 1. Chronic changes without acute pulmonary process. No significant change from prior. 2. COPD changes.
[2022-07-29] MEDS ORDERED: ASPIRIN 81 MG PO STA (09:00)
[2022-07-29] MEDS ORDERED: hydrALAZINE HCL 20 MG/ML 1 ML VIAL IVP STA ×2 (09:04→09:09)
[2022-07-29] MEDS ORDERED: lisinopriL 20 MG TAB PO STA (09:10)
[2022-07-29] MEDS: OSELTAMIVIR 75 MG CAP PO SCH ×2 (09:27→20:59)
[2022-07-29] MEDS ORDERED: NALOXONE 0.4 MG/ML 1 ML VIAL IV PRN (09:42)
[2022-07-29] MEDS ORDERED: SODIUM CHLORIDE 0.9% 1,000 ML IV STA (09:43)
[2022-07-29] MEDS ORDERED: NITROGLYCERIN SL TABS 0.4 MG TAB SUBLINGUAL PRN (10:41)
[2022-07-29] MEDS ORDERED: diphenhydrAMINE 25 MG CAP PO STA (10:54)
[2022-07-29 11:01] LABS: Appearance,Urine Clear (Clear); Bilirubin,Urine Negative (Negative); Blood,Urine Negative (Negative); Color,Urine Light Yellow; Glucose,Urine (UA) Negative (Negative); Ketones,Urine 1+ (Negative); Leukocyte Esterase,Urine Negative (Negative); Nitrite,Urine Negative (Negative); PH, Urine 6.5 (5.0-8.0); Protein,Urine Trace (Negative); Specific Gravity,Urine 1.012 (1.001-1.035); Urobilinogen,Urine <2.0 mg/dL (<2.0)
[2022-07-29] MEDS ORDERED: DILTIAZEM DRIP BOLUS FROM BAG 1 MG SOLN IV ONE (11:05)
[2022-07-29] MEDS ORDERED: DILTIAZEM 125 MG in SODIUM CHLORIDE 0.9% 100 ML IV SCH (11:15)
[2022-07-29] MEDS ORDERED: BENZOCAINE SPRAY 1 CAN TOPICAL PRN (11:16)
[2022-07-29] MEDS: IPRATROPIUM-ALBUTEROL 3 ML NEB INHALATION SCH ×3 (11:24→20:32)
[2022-07-29] MEDS ORDERED: HEPARIN SODIUM 1,000 UN/ML (10ML VL) IV ONE (11:36)
[2022-07-29] MEDS ORDERED: HEPARIN SODIUM 1,000 UN/ML (10ML VL) IV PRN (11:36)
[2022-07-29] MEDS ORDERED: HEPARIN SOD,PORK IN 0.45% NACL 25,000 UNIT in 0.45% NACL 1 250ML.BAG IV SCH (11:45)
[2022-07-29] MEDS: DILTIAZEM 125 MG in SODIUM CHLORIDE 0.9% 100 ML IV SCH (11:52)
[2022-07-29 12:30] LABS: Basophils % (A) 0 %; Eosinophils # (A) 0.1 k/uL (0-0.7); Eosinophils % (A) 1 %; HCT 44.1 % (34.0-46.0); HGB 13.9 gm/dL (11.4-16.0); Lymphocytes # (A) 0.3 k/uL (1.0-4.8); Lymphocytes % (A) 2 %; MCH 30.5 pg (25.0-35.0); MCHC 31.6 g/dL (31.0-37.0); MCV 96.7 fL (80.0-100.0); Mean Platelet Volume 7.7; Monocytes # (A) 0.2 k/uL (0-1.0); Monocytes % (A) 1 %; Neutrophils # (A) 17.2 k/uL (1.3-7.7); Neutrophils % (A) 96 %; Platelet Count 258 k/uL (150-450); RBC 4.57 m/uL (3.80-5.40); WBC 17.9 k/uL (3.8-10.6)
[2022-07-29 12:39] LABS: Partial Thromboplastin Time 26.7 sec (22.0-30.0); Prothrombin Time 10.8 sec (9.0-12.0)
[2022-07-29] MEDS: NYSTATIN 100,000 UNIT/ML SUSP 500,000 UNIT/5 ML CUP PO SCH ×3 (12:40→20:14)
--- NOTE | 2022-07-29 13:22 | CONS ---
CONSULTATION CHIEF COMPLAINT: New-onset atrial fibrillation. HISTORY OF PRESENT ILLNESS: Keri is a 72-year-old lady who was actually discharged home on the after her initial admission on the , comes back in to hospital complaining of shortness of breath and elevated heart rate. She has history of COPD and hypertension, was recently admitted to [facility] with COPD exacerbations. She was back here at the hospital on the with shortness of breath and severe uncontrolled hypertension. She had an echo recently that showed normal LV function with [id number] aortic regurgitation. She was ruled out for myocardial infarction at last admission and was discharged home on the . She comes back in complaining of shortness of breath. This has gotten progressively worse over the last night and this morning. She had a difficult time taking care of herself and eating. While in the ER, she had these recurrent episodes of fast heart rate with the heart rates jumping up to 150-170 beats per minute and she is intermittently going in and out of it. An EKG I performed while she was in this rhythm shows that she is in atrial fibrillation with rapid ventricular rate and when she converts, she converts back to sinus. Her troponin is mildly elevated at 0.04. She is positive for influenza A. COVID is negative. Her white cell count is elevated. Her clinical presentation is consistent with COPD exacerbation secondary to flow and paroxysmal episodes of atrial fibrillation. I am going to start her on IV Cardizem, IV heparin, and continue to optimize therapies as tolerated. PAST MEDICAL HISTORY: Significant for COPD, hypertension, and peripheral arterial disease. MEDICATIONS: At home included, 1. Lisinopril 40. 2. Hydralazine 50 t.i.d. 3. Benadryl. 4. Pletal. 5. Symbicort. 6. Ventolin. ALLERGIES: She has multiple drug allergies charted and I reviewed them. FAMILY HISTORY: Negative for premature coronary artery disease. SOCIAL HISTORY: Negative for current smoking, EtOH abuse or drug abuse. REVIEW OF SYSTEMS: A review of systems has been performed, pertinents are as documented. PHYSICAL EXAMINATION: VITAL SIGNS: Heart rate varies between 90 and 150, blood pressure is 172/78, and respiratory rate is 24. CHEST: Reveals diminished air entry with of diffuse rhonchi. HEART: Reveals first and second heart sounds. No gallop, no murmur. ABDOMEN: Soft. EXTREMITIES: Did not reveal any edema. Peripheral pulses are felt. ASSESSMENT: 1. Chronic obstructive pulmonary disease exacerbation. 2. Paroxysmal atrial fibrillation with rapid ventricular rate. 3. Severe uncontrolled hypertension. PLAN: The patient is on IV Cardizem. I will start IV heparin. Increase the dose of hydralazine for better blood pressure control if necessary. The patient's respiratory status will be managed by the primary care physician. Consider consulting a forest fire equipment operator. SERG / NEERAJN: [id number] /
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
[2022-07-29] MEDS: SODIUM CHLORIDE 0.9% 1,000 ML IV SCH (14:19)
[2022-07-29] MEDS ORDERED: ACETAMINOPHEN TAB 325 MG TAB PO PRN (14:55)
[2022-07-29] MEDS ORDERED: HEPARIN SODIUM,PORCINE/PF 5,000 UNIT/0.5 ML SYRINGE SQ SCH (16:00)
[2022-07-29] MEDS: guaiFENesin SYRUP 100MG/5ML 200 MG/10 ML CUP PO PRN (16:23)
[2022-07-29] MEDS: PANTOPRAZOLE 40 MG TABLET PO SCH (16:25)
[2022-07-29] MEDS: hydrALAZINE HCL 50 MG TAB PO SCH ×2 (16:25→20:14)
[2022-07-29] MEDS: methylPREDNISolone SOD SUCCI 40 MG/ML 1 ML VIAL IV SCH (20:13)
[2022-07-30] MEDS: IPRATROPIUM-ALBUTEROL 3 ML NEB INHALATION SCH ×7 (00:06→23:44)
[2022-07-30] MEDS: DILTIAZEM 125 MG in SODIUM CHLORIDE 0.9% 100 ML IV SCH (01:17)
[2022-07-30] MEDS: guaiFENesin SYRUP 100MG/5ML 200 MG/10 ML CUP PO PRN ×2 (01:18→22:06)
[2022-07-30] MEDS: SODIUM CHLORIDE 0.9% 1,000 ML IV SCH ×2 (04:20→12:15)
[2022-07-30] MEDS: PANTOPRAZOLE 40 MG TABLET PO SCH (06:43)
[2022-07-30 06:47] LABS: Basophils % (A) 0 %; Eosinophils # (A) 0.1 k/uL (0-0.7); Eosinophils % (A) 1 %; HCT 37.9 % (34.0-46.0); HGB 11.9 gm/dL (11.4-16.0); Lymphocytes # (A) 0.6 k/uL (1.0-4.8); Lymphocytes % (A) 5 %; MCH 29.9 pg (25.0-35.0); MCHC 31.3 g/dL (31.0-37.0); MCV 95.5 fL (80.0-100.0); Mean Platelet Volume 7.8; Monocytes # (A) 0.6 k/uL (0-1.0); Monocytes % (A) 6 %; Neutrophils # (A) 9.9 k/uL (1.3-7.7); Neutrophils % (A) 88 %; Platelet Count 239 k/uL (150-450); RBC 3.97 m/uL (3.80-5.40); RDW 12.7 % (11.5-15.5); WBC 11.3 k/uL (3.8-10.6)
[2022-07-30 07:04] LABS: Partial Thromboplastin Time 74.9 sec (22.0-30.0); Prothrombin Time 10.9 sec (9.0-12.0)
[2022-07-30 07:09] LABS: African American GFR (CKD) >90 (>60 ml/min/1.73 sqM); Anion Gap 2 mmol/L; Blood Urea Nitrogen 11 mg/dL (7-17); Calcium 7.7 mg/dL (8.4-10.2); Carbon Dioxide 32 mmol/L (22-30); Chloride 96 mmol/L (98-107); Glucose 146 mg/dL (74-99); Non-African American GFR(CKD) >90 (>60 ml/min/1.73 sqM); Potassium 3.9 mmol/L (3.5-5.1); Sodium 130 mmol/L (137-145)
[2022-07-30] MEDS: methylPREDNISolone SOD SUCCI 40 MG/ML 1 ML VIAL IV SCH ×2 (08:01→20:12)
[2022-07-30] MEDS: NYSTATIN 100,000 UNIT/ML SUSP 500,000 UNIT/5 ML CUP PO SCH ×4 (08:02→22:06)
[2022-07-30] MEDS: OSELTAMIVIR 75 MG CAP PO SCH ×2 (08:02→20:12)
[2022-07-30] MEDS: hydrALAZINE HCL 50 MG TAB PO SCH ×3 (08:02→20:12)
[2022-07-30] MEDS: lisinopriL 20 MG TAB PO SCH (08:02)
[2022-07-30] MEDS ORDERED: METOPROLOL SUCCINATE (ER) 25 MG TAB.ER.24H PO SCH (09:00)
[2022-07-30] MEDS: APIXABAN 5 MG TAB PO SCH ×2 (09:40→20:12)
[2022-07-30 11:32] LABS: Glucose,Whole Blood 169 mg/dL (70-110)
--- NOTE | 2022-07-30 12:16 | P.PN ---
Subjective Progress Note Date: 07/30/22 History of present illness: This is a 72-year-old female with past medical history of COPD, hypertension, peripheral artery disease. She has had multiple hospitalizations in the last month for COPD exacerbation and chest pain, tachycardia. Patient presented now with progressive shortness of breath, difficulty taking care of herself and eating. Patient had episodes of tachycardia 150-1 70 bpm atrial fibrillation with RVR. She converted back to sinus rhythm. Her initial troponin was 0.04. She was positive for influenza A and Covid negative. Patient is seen today on the cardiac stepdown unit. She is currently on Cardizem drip and heparin drip. The patient is now in a sinus rhythm. We will ask for one repeat troponin. Patient denies having any chest pains that she never had any pain. She states her chest neck and face become red. Potassium 3.9, BUN 11 creatinine 0.49. Troponins 0.046, 0.035, 0.071. Pulse ox 91% on 3 L nasal cannula. Physical examination: Gen: This is a 72-year-old female. She is resting in bed appears to be comfortable and in no acute distress VS: reviewed HEENT: Head is atraumatic, normocephalic. Pupils equal, round. Sclerae is anicteric. NECK: Supple. No JVD. No lymphadenopathy. No thyromegaly. LUNGS: Clear to auscultation. No wheezes or rhonchi. No intercostal retractions. HEART: Regular rate and rhythm. No murmur. ABDOMEN: Soft. Bowel sounds are present. No masses. No tenderness. EXTREMITIES: No pedal edema. No calf tenderness. NEUROLOGICAL: Patient is awake, alert and oriented x3. Cranial nerves 2 through 12 are grossly intact. Assessment: Influenza A COPD Paroxysmal atrial fibrillation with RVR, currently in sinus rhythm Uncontrolled hypertension Abnormal troponins most likely secondary to atrial fibrillation with RVR Plan: Discontinue heparin drip and start the patient on eliquis 5 mg twice daily Note patient has ALLERGY to metoprolol causing rash Discontinue Cardizem gtt and start patient on Atenolol 25 mg daily Further recommendations to follow based upon clinical course Thank you kindly for this consultation. Nurse practitioner note has been reviewed, I agree with documented findings and plan of care. Patient was seen and examined. Objective - Vital Signs Vital signs: Vital Signs Temp 98.5 F 07/30/22 07:58 Pulse 80 07/30/22 08:51 Resp 18 07/30/22 07:58 BP 154/54 07/30/22 07:58 Pulse Ox 91 L 07/30/22 07:58 FiO2 Intake & Output 07/29/22 07/30/22 07/30/22 18:59 06:59 18:59 Intake Total 130.5 385 490.075 Balance 130.5 385 490.075 Weight 60.328 kg Intake: IV 10 20 Invasive Line 1 10 20 Intake, IV Titration 2.5 125 140.075 Amount Diltiazem 125 mg In 125 Sodium Chloride 0.9% 100 ml @ 10 MG/HR 10 mls/hr IV .[id number] [facility] Rx#: [id number] Diltiazem 125 mg In 2.5 Sodium Chloride 0.9% 100 ml @ 5 MG/HR 5 mls/hr IV .Q24H [facility] Rx#:[id number] Heparin Sod,Pork in 0.45% 140.075 NaCl 25,000 unit In 0.45 % NaCl 1 250ml.bag @ 12 UNITS/KG/HR 7.239 mls/hr IV .Q24H [facility] Rx#: [id number] Oral 118 240 350 Other: Voiding Method Bedside Commode Bedside Commode Bedside Commode # Voids 1 - Labs CBC & Chem 7: 07/30/22 06:16 07/30/22 06:16 Labs: Abnormal Lab Results - Last 24 Hours (Table) 07/29/22 07/29/22 07/29/22 Range/Units 12:22 12:22 14:36 WBC 17.9 H (3.8-10.6) k/uL Neutrophils # 17.2 H (1.3-7.7) k/uL Lymphocytes # 0.3 L (1.0-4.8) k/uL APTT (22.0-30.0) sec Sodium (137-145) mmol/L Chloride (98-107) mmol/L Carbon Dioxide (22-30) mmol/L Creatinine (0.52-1.04) mg/dL Glucose (74-99) mg/dL POC Glucose (mg/dL) (70-110) mg/dL Calcium (8.4-10.2) mg/dL Troponin I 0.035 H* 0.071 H* (0.000-0.034) ng/mL 07/29/22 07/30/22 07/30/22 Range/Units 17:32 06:16 06:16 WBC 11.3 H (3.8-10.6) k/uL Neutrophils # 9.9 H (1.3-7.7) k/uL Lymphocytes # 0.6 L (1.0-4.8) k/uL APTT 57.2 H 74.9 H (22.0-30.0) sec Sodium (137-145) mmol/L Chloride (98-107) mmol/L Carbon Dioxide (22-30) mmol/L Creatinine (0.52-1.04) mg/dL Glucose (74-99) mg/dL POC Glucose (mg/dL) (70-110) mg/dL Calcium (8.4-10.2) mg/dL Troponin I (0.000-0.034) ng/mL 07/30/22 07/30/22 Range/Units 06:16 11:30 WBC (3.8-10.6) k/uL Neutrophils # (1.3-7.7) k/uL Lymphocytes # (1.0-4.8) k/uL APTT (22.0-30.0) sec Sodium 130 L (137-145) mmol/L Chloride 96 L (98-107) mmol/L Carbon Dioxide 32 H (22-30) mmol/L Creatinine 0.49 L (0.52-1.04) mg/dL Glucose 146 H (74-99) mg/dL POC Glucose (mg/dL) 169 H (70-110) mg/dL Calcium 7.7 L (8.4-10.2) mg/dL Troponin I (0.000-0.034) ng/mL
[2022-07-30] MEDS: atenoloL 25 MG TAB PO SCH (12:26)
[2022-07-30 14:30] VITALS: BMI 26.9
--- NOTE | 2022-07-30 16:31 | P.PN ---
Subjective Progress Note Date: 07/30/22 72-year-old female admitted multiple recent hospital physicians comes back again with shortness of breath cough. This time patient is found to have influenza B patient was started on Tamiflu patient is still wheezing patient also has new onset atrial fibrillation at this time. Patient is still hyponatremic but serum sodium did improve compared to last time patient was given some IV fluid in ER. Patient does have leukocytosis at this time. Patient was started on Solu-Medrol patient is a mildly elevated troponins. 07/30/2022 Patient is evaluated today resting in bed. She is overall feeling better. She is being transitioned off the IV cardizem and started on atenolol. On oral eliquis. Continues on IV solumedrol. She continues on tamiflu. Her sodium is up to 130. White count has improved to 11.3. Has low grade fever of 99, continues on oxygen via nasal cannula at 3L. Review of Systems Constitutional: Denied any fatigue denied any fever. Cardio vascular: denied any chest pain, palpitations Gastrointestinal: denied any nausea, vomiting, diarrhea Pulmonary: Reports shortness of breath Neurologic denied any new focal deficits All inpatient medications were reviewed and appropriate changes in these medications as dictated in the interval history and assessment and plan. PHYSICAL EXAMINATION: GENERAL: The patient is alert and oriented x3, not in any acute distress. Well developed, well nourished. HEENT: Pupils are round and equally reacting to light. EOMI. No scleral icterus. No conjunctival pallor. Normocephalic, atraumatic. No pharyngeal erythema. No thyromegaly. CARDIOVASCULAR: S1 and S2 present. No murmurs, rubs, or gallops. PULMONARY: Expiratory wheezing on exam. ABDOMEN: Soft, nontender, nondistended, normoactive bowel sounds. No palpable organomegaly. MUSCULOSKELETAL: No joint swelling or deformity. EXTREMITIES: No cyanosis, clubbing, or pedal edema. NEUROLOGICAL: Gross neurological examination did not reveal any focal deficits. Generalized weakness. SKIN: No rashes. Assessment and plan -Acute on chronic hypercapnic and hypoxic respiratory failure secondary to influenza A and COPD exacerbation patient will be continued on Tamiflu and systemic steroids -New-onset atrial fibrillation contributing to be obtained patient has been transitioned off IV cardizem -Uncontrolled hypertension: improved -Mildly elevated troponin secondary to atrial fibrillation and hypoxemia -Hyponatremia from poor oral intake Hyperglycemia History of COPD Former smoker Full Code DVT prophylaxis: Eliquis GI prophylaxis: protonix The impression and plan of care has been dictated by Monserrat Giordano, Nurse Practitioner as directed. Dr. Oleg MD I have performed a history and physical examination and medical decision making of this patient, discussed the same with the dictator, and agree with the dictators assessment and plan as written, documented as a scribe. Based on total visit time, I have performed more than 50% of this visit. Objective - Vital Signs Vital signs: Vital Signs Temp 98.4 F 07/30/22 04:00 Pulse 80 07/30/22 08:51 Resp 17 07/30/22 04:00 BP 141/79 07/30/22 04:00 Pulse Ox 94 L 07/30/22 04:00 FiO2 Intake & Output 07/29/22 07/30/22 07/30/22 18:59 06:59 18:59 Intake Total 130.5 385 380.075 Balance 130.5 385 380.075 Weight 60.328 kg Intake: IV 10 20 Invasive Line 1 10 20 Intake, IV Titration 2.5 125 140.075 Amount Diltiazem 125 mg In 125 Sodium Chloride 0.9% 100 ml @ 10 MG/HR 10 mls/hr IV .[id number] [facility] Rx#: [id number] Diltiazem 125 mg In 2.5 Sodium Chloride 0.9% 100 ml @ 5 MG/HR 5 mls/hr IV .Q24H [facility] Rx#:[id number] Heparin Sod,Pork in 0.45% 140.075 NaCl 25,000 unit In 0.45 % NaCl 1 250ml.bag @ 12 UNITS/KG/HR 7.239 mls/hr IV .Q24H [facility] Rx#: [id number] Oral 118 240 240 Other: Voiding Method Bedside Commode Bedside Commode # Voids 1 - Labs CBC & Chem 7: 07/30/22 06:16 07/30/22 06:16 Labs: Abnormal Lab Results - Last 24 Hours (Table) 07/29/22 07/29/22 07/29/22 Range/Units 07:37 12:22 12:22 WBC 17.9 H (3.8-10.6) k/uL Neutrophils # 17.2 H (1.3-7.7) k/uL Lymphocytes # 0.3 L (1.0-4.8) k/uL APTT (22.0-30.0) sec Sodium (137-145) mmol/L Chloride (98-107) mmol/L Carbon Dioxide (22-30) mmol/L Creatinine (0.52-1.04) mg/dL Glucose (74-99) mg/dL Calcium (8.4-10.2) mg/dL Troponin I 0.035 H* (0.000-0.034) ng/mL Urine Protein Trace H (Negative) Urine Ketones 1+ H (Negative) 07/29/22 07/29/22 07/30/22 Range/Units 14:36 17:32 06:16 WBC (3.8-10.6) k/uL Neutrophils # (1.3-7.7) k/uL Lymphocytes # (1.0-4.8) k/uL APTT 57.2 H 74.9 H (22.0-30.0) sec Sodium (137-145) mmol/L Chloride (98-107) mmol/L Carbon Dioxide (22-30) mmol/L Creatinine (0.52-1.04) mg/dL Glucose (74-99) mg/dL Calcium (8.4-10.2) mg/dL Troponin I 0.071 H* (0.000-0.034) ng/mL Urine Protein (Negative) Urine Ketones (Negative) 07/30/22 07/30/22 Range/Units 06:16 06:16 WBC 11.3 H (3.8-10.6) k/uL Neutrophils # 9.9 H (1.3-7.7) k/uL Lymphocytes # 0.6 L (1.0-4.8) k/uL APTT (22.0-30.0) sec Sodium 130 L (137-145) mmol/L Chloride 96 L (98-107) mmol/L Carbon Dioxide 32 H (22-30) mmol/L Creatinine 0.49 L (0.52-1.04) mg/dL Glucose 146 H (74-99) mg/dL Calcium 7.7 L (8.4-10.2) mg/dL Troponin I (0.000-0.034) ng/mL Urine Protein (Negative) Urine Ketones (Negative) Assessment and Plan Time with Patient: Less than 30
[2022-07-30 16:36] LABS: Glucose,Whole Blood 135 mg/dL (70-110)
[2022-07-30 19:48] LABS: Glucose,Whole Blood 192 mg/dL (70-110)
[2022-07-30] MEDS ORDERED: diazePAM 2 MG TAB PO STA (20:01)
[2022-07-31] MEDS ORDERED: hydrALAZINE HCL 20 MG/ML 1 ML VIAL IVP STA (00:07)
[2022-07-31] MEDS ORDERED: diazePAM 5 MG TAB PO STA (00:07)
[2022-07-31] MEDS: hydrALAZINE HCL 25 MG TAB PO SCH ×2 (00:19→10:35)
[2022-07-31] MEDS: IPRATROPIUM-ALBUTEROL 3 ML NEB INHALATION SCH ×6 (03:13→23:54)
[2022-07-31] MEDS: PANTOPRAZOLE 40 MG TABLET PO SCH (05:45)
[2022-07-31] MEDS: lisinopriL 20 MG TAB PO SCH (05:45)
[2022-07-31 06:09] LABS: Glucose,Whole Blood 124 mg/dL (70-110)
[2022-07-31 07:34] LABS: African American GFR (CKD) >90 (>60 ml/min/1.73 sqM); Anion Gap 2 mmol/L; Blood Urea Nitrogen 13 mg/dL (7-17); Calcium 8.1 mg/dL (8.4-10.2); Carbon Dioxide 32 mmol/L (22-30); Chloride 99 mmol/L (98-107); Glucose 129 mg/dL (74-99); Non-African American GFR(CKD) >90 (>60 ml/min/1.73 sqM); Potassium 4.1 mmol/L (3.5-5.1); Sodium 133 mmol/L (137-145)
[2022-07-31] MEDS ORDERED: diphenhydrAMINE 25 MG CAP PO PRN (08:55)
[2022-07-31] MEDS ORDERED: BENZOCAINE/MENTHOL LOZENG 1 EACH LOZENGE MUCOUS MEM PRN (08:55)
[2022-07-31] MEDS ORDERED: diazePAM 2 MG TAB PO PRN (08:56)
[2022-07-31] MEDS ORDERED: hydrALAZINE HCL 25 MG TAB PO STA (09:02)
[2022-07-31] MEDS: NYSTATIN 100,000 UNIT/ML SUSP 500,000 UNIT/5 ML CUP PO SCH ×4 (10:10→21:42)
[2022-07-31] MEDS: OSELTAMIVIR 75 MG CAP PO SCH ×2 (10:11→21:43)
[2022-07-31] MEDS: atenoloL 25 MG TAB PO SCH (10:11)
[2022-07-31] MEDS: methylPREDNISolone SOD SUCCI 40 MG/ML 1 ML VIAL IV SCH ×2 (10:11→21:43)
[2022-07-31] MEDS: APIXABAN 5 MG TAB PO SCH ×2 (10:11→21:43)
[2022-07-31 11:28] LABS: Glucose,Whole Blood 141 mg/dL (70-110)
--- NOTE | 2022-07-31 12:05 | P.PN ---
Subjective Progress Note Date: 07/31/22 History of present illness: This is a 72-year-old female with past medical history of COPD, hypertension, peripheral artery disease. She has had multiple hospitalizations in the last month for COPD exacerbation and chest pain, tachycardia. Patient presented now with progressive shortness of breath, difficulty taking care of herself and eating. Patient had episodes of tachycardia 150-1 70 bpm atrial fibrillation with RVR. She converted back to sinus rhythm. Her initial troponin was 0.04. She was positive for influenza A and Covid negative. Patient is seen today on the cardiac stepdown unit. She is currently on Cardizem drip and heparin drip. The patient is now in a sinus rhythm. We will ask for one repeat troponin. Patient denies having any chest pains that she never had any pain. She states her chest neck and face become red. Potassium 3.9, BUN 11 creatinine 0.49. Troponins 0.046, 0.035, 0.071. Pulse ox 91% on 3 L nasal cannula. 07/31 Patient's blood pressure is elevated but patient has minimum medication options due to "allergies". Note the patient is continued on IV Solu-Medrol. Repeat potassium 4.1, BUN 13 creatinine 0.46. Pulse ox is 97% on 3 L nasal cannula. Patient denies chest pain. Physical examination: Gen: This is a 72-year-old female. She is resting in bed appears to be comfortable and in no acute distress VS: reviewed HEENT: Head is atraumatic, normocephalic. Pupils equal, round. Sclerae is anicteric. NECK: Supple. No JVD. No lymphadenopathy. No thyromegaly. LUNGS: Clear to auscultation. No wheezes or rhonchi. No intercostal retract ions. HEART: Regular rate and rhythm. No murmur. ABDOMEN: Soft. Bowel sounds are present. No masses. No tenderness. EXTREMITIES: No pedal edema. No calf tenderness. NEUROLOGICAL: Patient is awake, alert and oriented x3. Assessment: Influenza A COPD Paroxysmal atrial fibrillation with RVR, currently in sinus rhythm Uncontrolled hypertension Abnormal troponins most likely secondary to atrial fibrillation with RVR Plan: Continue the patient on eliquis 5 mg twice daily Note patient has multiple medication ALLERGIES Continue patient on Atenolol 25 mg daily Increase hydralazine to 50 mg 4 times daily Further recommendations to follow based upon clinical course Nurse practitioner note has been reviewed, I agree with documented findings and plan of care. Patient was seen and examined. Objective - Vital Signs Vital signs: Vital Signs Temp 98.2 F 07/31/22 04:00 Pulse 82 07/31/22 08:18 Resp 20 07/31/22 04:00 BP 196/96 07/31/22 04:00 Pulse Ox 92 L 07/31/22 04:00 FiO2 Intake & Output 07/30/22 07/31/22 07/31/22 18:59 06:59 18:59 Intake Total 608.075 480 Balance 608.075 480 Weight 60.328 kg Intake: Intake, IV Titration 140.075 Amount Heparin Sod,Pork in 0.45% 140.075 NaCl 25,000 unit In 0.45 % NaCl 1 250ml.bag @ 12 UNITS/KG/HR 7.239 mls/hr IV .Q24H [facility] Rx#: [id number] Oral 468 480 Other: Voiding Method Bedside Commode Bedside Commode # Voids 1 1 - Labs CBC & Chem 7: 07/30/22 06:16 07/31/22 06:48 Labs: Abnormal Lab Results - Last 24 Hours (Table) 07/30/22 07/30/22 07/30/22 Range/Units 11:30 16:34 19:47 Sodium (137-145) mmol/L Carbon Dioxide (22-30) mmol/L Creatinine (0.52-1.04) mg/dL Glucose (74-99) mg/dL POC Glucose (mg/dL) 169 H 135 H 192 H (70-110) mg/dL Calcium (8.4-10.2) mg/dL 07/31/22 07/31/22 Range/Units 06:08 06:48 Sodium 133 L (137-145) mmol/L Carbon Dioxide 32 H (22-30) mmol/L Creatinine 0.46 L (0.52-1.04) mg/dL Glucose 129 H (74-99) mg/dL POC Glucose (mg/dL) 124 H (70-110) mg/dL Calcium 8.1 L (8.4-10.2) mg/dL
[2022-07-31] MEDS: SODIUM CHLORIDE 0.9% 1,000 ML IV SCH (12:09)
[2022-07-31] MEDS: hydrALAZINE HCL 50 MG TAB PO SCH ×4 (12:11→21:43)
--- NOTE | 2022-07-31 15:22 | P.PN ---
Subjective Progress Note Date: 07/31/22 72-year-old female admitted multiple recent hospital physicians comes back again with shortness of breath cough. This time patient is found to have influenza B patient was started on Tamiflu patient is still wheezing patient also has new onset atrial fibrillation at this time. Patient is still hyponatremic but serum sodium did improve compared to last time patient was given some IV fluid in ER. Patient does have leukocytosis at this time. Patient was started on Solu-Medrol patient is a mildly elevated troponins. 07/30/2022 Patient is evaluated today resting in bed. She is overall feeling better. She is being transitioned off the IV cardizem and started on atenolol. On oral eliquis. Continues on IV solumedrol. She continues on tamiflu. Her sodium is up to 130. White count has improved to 11.3. Has low grade fever of 99, continues on oxygen via nasal cannula at 3L. 07/31/2022 Patient is monitored on stepdown unit today. She is monitored off IV cardizem and heart rate has improved currently in the 70s and maintaining normal sinus rhythm. Her blood pressure was been elevated in the 190s systolic. She does report multiple allergies to blood pressure medications. She is tolerating atenolol for rate control and also hydralazine which has been increased today. She continues on 5 day course of tamiflu and also IV steroids for acute influenza A. She is currently on 3L nasal cannula with oxygen saturation of 95%. Continues on symbicort and duonebs. Continues on IV fluids with sodium up to 133 with stable kidney function. If she continues to tolerate oral intake will likely DC IV fluids tomorrow. Review of Systems Constitutional: Denied any fatigue denied any fever. Cardio vascular: denied any chest pain, palpitations Gastrointestinal: denied any nausea, vomiting, diarrhea Pulmonary: Reports shortness of breath Neurologic denied any new focal deficits All inpatient medications were reviewed and appropriate changes in these medications as dictated in the interval history and assessment and plan. PHYSICAL EXAMINATION: GENERAL: The patient is alert and oriented x3, not in any acute distress. Well developed, well nourished. HEENT: Pupils are round and equally reacting to light. EOMI. No scleral icterus. No conjunctival pallor. Normocephalic, atraumatic. No pharyngeal erythema. No thyromegaly. CARDIOVASCULAR: S1 and S2 present. No murmurs, rubs, or gallops. PULMONARY: Expiratory wheezing on exam with improved aeration ABDOMEN: Soft, nontender, nondistended, normoactive bowel sounds. No palpable organomegaly. MUSCULOSKELETAL: No joint swelling or deformity. EXTREMITIES: No cyanosis, clubbing, or pedal edema. NEUROLOGICAL: Gross neurological examination did not reveal any focal deficits. Generalized weakness. SKIN: No rashes. Assessment and plan -Acute on chronic hypercapnic and hypoxic respiratory failure secondary to influenza A and COPD exacerbation patient will be continued on Tamiflu and systemic steroids -New-onset atrial fibrillation with RVR currently maintaining sinus rhythm patient has been transitioned off IV cardizem and transitioned to atenolol. -Uncontrolled hypertension: Increase hydralazine and continue to monitor -Mildly elevated troponin secondary to atrial fibrillation and hypoxemia -Hyponatremia from poor oral intake improving with IV fluids which will be continued overnight and repeat sodium level tomorrow. Hyperglycemia History of COPD Former smoker Full Code DVT prophylaxis: Eliquis GI prophylaxis: protonix PT/OT evaluation and discharge planning. The impression and plan of care has been dictated by Monserrat Giordano, Nurse Practitioner as directed. Dr. Oleg MD I have performed a history and physical examination and medical decision making of this patient, discussed the same with the dictator, and agree with the dictators assessment and plan as written, documented as a scribe. Based on total visit time, I have performed more than 50% of this visit. Objective - Vital Signs Vital signs: Vital Signs Temp 98.2 F 07/31/22 04:00 Pulse 82 07/31/22 08:18 Resp 20 07/31/22 04:00 BP 196/96 07/31/22 04:00 Pulse Ox 92 L 07/31/22 04:00 FiO2 Intake & Output 07/30/22 07/31/22 07/31/22 18:59 06:59 18:59 Intake Total 608.075 480 Balance 608.075 480 Weight 60.328 kg Intake: Intake, IV Titration 140.075 Amount Heparin Sod,Pork in 0.45% 140.075 NaCl 25,000 unit In 0.45 % NaCl 1 250ml.bag @ 12 UNITS/KG/HR 7.239 mls/hr IV .Q24H [facility] Rx#: [id number] Oral 468 480 Other: Voiding Method Bedside Commode Bedside Commode # Voids 1 1 - Labs CBC & Chem 7: 07/30/22 06:16 07/31/22 06:48 Labs: Abnormal Lab Results - Last 24 Hours (Table) 07/30/22 07/30/22 07/30/22 Range/Units 11:30 16:34 19:47 Sodium (137-145) mmol/L Carbon Dioxide (22-30) mmol/L Creatinine (0.52-1.04) mg/dL Glucose (74-99) mg/dL POC Glucose (mg/dL) 169 H 135 H 192 H (70-110) mg/dL Calcium (8.4-10.2) mg/dL 07/31/22 07/31/22 Range/Units 06:08 06:48 Sodium 133 L (137-145) mmol/L Carbon Dioxide 32 H (22-30) mmol/L Creatinine 0.46 L (0.52-1.04) mg/dL Glucose 129 H (74-99) mg/dL POC Glucose (mg/dL) 124 H (70-110) mg/dL Calcium 8.1 L (8.4-10.2) mg/dL Assessment and Plan Time with Patient: Less than 30
[2022-07-31 16:32] LABS: Glucose,Whole Blood 115 mg/dL (70-110)
[2022-07-31] MEDS: SYMBICORT 160-4.5 MCG INHALER INHALATION SCH (19:55)
[2022-07-31 20:13] LABS: Glucose,Whole Blood 156 mg/dL (70-110)
[2022-08-01] MEDS: SODIUM CHLORIDE 0.9% 1,000 ML IV SCH (00:51)
[2022-08-01] MEDS: carvediloL 12.5 MG TAB PO SCH ×2 (00:58→06:42)
[2022-08-01] MEDS: IPRATROPIUM-ALBUTEROL 3 ML NEB INHALATION SCH ×4 (03:30→15:41)
[2022-08-01 06:09] LABS: Glucose,Whole Blood 138 mg/dL (70-110)
[2022-08-01] MEDS: PANTOPRAZOLE 40 MG TABLET PO SCH (06:43)
[2022-08-01] MEDS: SYMBICORT 160-4.5 MCG INHALER INHALATION SCH (08:31)
[2022-08-01 08:48] VITALS: TEMP 97.7
[2022-08-01 09:37] LABS: African American GFR (CKD) >90 (>60 ml/min/1.73 sqM); Anion Gap 3 mmol/L; Blood Urea Nitrogen 15 mg/dL (7-17); Calcium 8.2 mg/dL (8.4-10.2); Carbon Dioxide 33 mmol/L (22-30); Chloride 96 mmol/L (98-107); Glucose 142 mg/dL (74-99); Non-African American GFR(CKD) >90 (>60 ml/min/1.73 sqM); Potassium 4.8 mmol/L (3.5-5.1); Sodium 132 mmol/L (137-145)
[2022-08-01] MEDS: methylPREDNISolone SOD SUCCI 40 MG/ML 1 ML VIAL IV SCH (09:49)
[2022-08-01] MEDS: NYSTATIN 100,000 UNIT/ML SUSP 500,000 UNIT/5 ML CUP PO SCH ×2 (09:50→12:55)
[2022-08-01] MEDS: hydrALAZINE HCL 50 MG TAB PO SCH ×2 (09:50→11:36)
[2022-08-01] MEDS: APIXABAN 5 MG TAB PO SCH (09:50)
[2022-08-01] MEDS: lisinopriL 20 MG TAB PO SCH (09:50)
[2022-08-01] MEDS: OSELTAMIVIR 75 MG CAP PO SCH (09:50)
[2022-08-01 11:48] LABS: Glucose,Whole Blood 128 mg/dL (70-110)
[2022-08-01 11:53] VITALS: PULSE 69; RESP 15
--- NOTE | 2022-08-01 12:00 | XR ---
EXAMINATION TYPE: XR chest 2V DATE OF EXAM: 08/01/2022 11:15 AM COMPARISON: Chest radiographs from 07/29/2022 TECHNIQUE: XR chest 2V Frontal and lateral views of the chest. CLINICAL INDICATION:Female, 72 years old with history of hypoxia; FINDINGS: Lungs/Pleura: There is flattening of the diaphragm with increased lucency of the lungs. Blunting of t he costophrenic angles is present. No evidence of pneumothorax or focal consolidation. Pulmonary vascularity: Pulmonary vascular congestion. Heart/mediastinum: Cardiomediastinal silhouette is enlarged and stable. Musculoskeletal: No acute osseous pathology. IMPRESSION: 1. Cardiomegaly, pulmonary vascular congestion and bilateral pleural effusions. Correlate with BNP f or congestive heart failure. 2. COPD changes.
--- NOTE | 2022-08-01 12:14 | P.PN ---
Subjective Progress Note Date: 08/01/22 History of present illness: This is a 72-year-old female with past medical history of COPD, hypertension, peripheral artery disease. She has had multiple hospitalizations in the last month for COPD exacerbation and chest pain, tachycardia. Patient presented now with progressive shortness of breath, difficulty taking care of herself and eating. Patient had episodes of tachycardia 150-1 70 bpm atrial fibrillation with RVR. She converted back to sinus rhythm. Her initial troponin was 0.04. She was positive for influenza A and Covid negative. Patient is seen today on the cardiac stepdown unit. She is currently on Cardizem drip and heparin drip. The patient is now in a sinus rhythm. We will ask for one repeat troponin. Patient denies having any chest pains that she never had any pain. She states her chest neck and face become red. Potassium 3.9, BUN 11 creatinine 0.49. Troponins 0.046, 0.035, 0.071. Pulse ox 91% on 3 L nasal cannula. 07/31 Patient's blood pressure is elevated but patient has minimum medication options due to "allergies". Note the patient is continued on IV Solu-Medrol. Repeat potassium 4.1, BUN 13 creatinine 0.46. Pulse ox is 97% on 3 L nasal cannula. Patient denies chest pain. 08/01 Patient's blood pressures continued to be elevated 190/28309/108. Patient initially refused to take hydralazine 50 mg 4 times daily yesterday but eventually she did agree. Heart rate has been in the 60s, telemetry is sinus rhythm. Repeat blood work reveals sodium 132, potassium 4.8, chloride 96, CO2 33, BUN 15 and creatinine 0.51. Chest x-ray reveals cardiomegaly, pulmonary vascular congestion and bilateral pleural effusions. Correlate BNP for heart failure. COPD changes. Physical examination: Gen: This is a 72-year-old female. She is resting in bed appears to be comfortable and in no acute distress VS: reviewed HEENT: Head is atraumatic, normocephalic. Pupils equal, round. Sclerae is anicteric. NECK: Supple. No JVD. No lymphadenopathy. No thyromegaly. LUNGS: Clear to auscultation. No wheezes or rhonchi. No intercostal retractions. HEART: Regular rate and rhythm. No murmur. ABDOMEN: Soft. Bowel sounds are present. No masses. No tenderness. EXTREMITIES: No pedal edema. No calf tenderness. NEUROLOGICAL: Patient is awake, alert and oriented x3. Assessment: Influenza A COPD Paroxysmal atrial fibrillation with RVR, currently in sinus rhythm Uncontrolled hypertension Abnormal troponins most likely secondary to atrial fibrillation with RVR Plan: Continue the patient on eliquis 5 mg twice daily Note patient has multiple medication ALLERGIES Continue patient on Atenolol 25 mg daily Increase hydralazine to 50 mg 4 times daily Patient is cleared from cardiology for discharge home. Continue current medications. Blood pressure medications will need to be adjusted in the outpatient setting. Nurse practitioner note has been reviewed, I agree with documented findings and plan of care. Patient was seen and examined. Objective - Vital Signs Vital signs: Vital Signs Temp 98.1 F 08/01/22 00:00 Pulse 80 08/01/22 03:47 Resp 20 08/01/22 06:46 BP 190/87 08/01/22 06:46 Pulse Ox 91 L 08/01/22 06:46 FiO2 Intake & Output 07/31/22 08/01/22 08/01/22 18:59 06:59 18:59 Intake Total 868 Balance 868 Intake: Oral 868 Other: Voiding Method Bedside Commode Bedside Commode # Voids 3 2 # Bowel Movements 2 - Labs CBC & Chem 7: 07/30/22 06:16 08/01/22 08:23 Labs: Abnormal Lab Results - Last 24 Hours (Table) 07/31/22 07/31/22 07/31/22 Range/Units 11:27 16:31 20:12 POC Glucose (mg/dL) 141 H 115 H 156 H (70-110) mg/dL 08/01/22 Range/Units 06:08 POC Glucose (mg/dL) 138 H (70-110) mg/dL
[2022-08-01] MEDS ORDERED: FUROSEMIDE 10 MG/ML 4 ML VIAL IV STA (14:53)
--- NOTE | 2022-08-01 15:07 | P.PN ---
Subjective Progress Note Date: 08/01/22 72-year-old female admitted multiple recent hospital physicians comes back again with shortness of breath cough. This time patient is found to have influenza B patient was started on Tamiflu patient is still wheezing patient also has new onset atrial fibrillation at this time. Patient is still hyponatremic but serum sodium did improve compared to last time patient was given some IV fluid in ER. Patient does have leukocytosis at this time. Patient was started on Solu-Medrol patient is a mildly elevated troponins. 07/30/2022 Patient is evaluated today resting in bed. She is overall feeling better. She is being transitioned off the IV cardizem and started on atenolol. On oral eliquis. Continues on IV solumedrol. She continues on tamiflu. Her sodium is up to 130. White count has improved to 11.3. Has low grade fever of 99, continues on oxygen via nasal cannula at 3L. 07/31/2022 Patient is monitored on stepdown unit today. She is monitored off IV cardizem and heart rate has improved currently in the 70s and maintaining normal sinus rhythm. Her blood pressure was been elevated in the 190s systolic. She does report multiple allergies to blood pressure medications. She is tolerating atenolol for rate control and also hydralazine which has been increased today. She continues on 5 day course of tamiflu and also IV steroids for acute influenza A. She is currently on 3L nasal cannula with oxygen saturation of 95%. Continues on symbicort and duonebs. Continues on IV fluids with sodium up to 133 with stable kidney function. If she continues to tolerate oral intake will likely DC IV fluids tomorrow. 08/01/2022 Patient is monitored on stepdown unit. Has been continued on normal saline and sodium has dropped to 132 and will recommend to stop fluids at this time. Blood pressure is elevated today 200/108. She continues on oxygen at 3L nasal cannula with saturations of 91 to 92%. Chest xray will be ordered and likely patient will need to be given some lasix. She has been changed to carvedilol from atenolol and also continues on IV steroids, tamiflu and hydralazine. 08/02/2022 Patient is monitored on stepdown unit today. Her blood pressure is elevated and climbing today most recently 240s/110s. She has been started on carvedilol BID and continues on hydralazine and lisinopril 40 mg daily. Her sodium today is 132 and she does have decreased aeration. Chest xray was performed showing some pulmonary vascular congestion and will recommend patient receive a dose of IV lasix. She wants to discharge home today. Cardiology has cleared patient and recommending to follow up outpatient for further recommendation regarding blood pressure control. Review of Systems Constitutional: Denied any fatigue denied any fever. Cardio vascular: denied any chest pain, palpitations Gastrointestinal: denied any nausea, vomiting, diarrhea Pulmonary: Reports shortness of breath Neurologic denied any new focal deficits All inpatient medications were reviewed and appropriate changes in these medications as dictated in the interval history and assessment and plan. PHYSICAL EXAMINATION: GENERAL: The patient is alert and oriented x3, not in any acute distress. Well developed, well nourished. HEENT: Pupils are round and equally reacting to light. EOMI. No scleral icterus. No conjunctival pallor. Normocephalic, atraumatic. No pharyngeal erythema. No thyromegaly. CARDIOVASCULAR: S1 and S2 present. No murmurs, rubs, or gallops. PULMONARY: Expiratory wheezing on exam faint and scattered with diminished aeration today. ABDOMEN: Soft, nontender, nondistended, normoactive bowel sounds. No palpable organomegaly. MUSCULOSKELETAL: No joint swelling or deformity. EXTREMITIES: No cyanosis, clubbing, or pedal edema. NEUROLOGICAL: Gross neurological examination did not reveal any focal deficits. Generalized weakness. SKIN: No rashes. Assessment and plan -Acute on chronic hypercapnic and hypoxic respiratory failure secondary to influenza A and COPD exacerbation patient will be continued on Tamiflu and transitioned to oral steroids today -Volume overload likely from IV fluids which have been stopped and patient will be given a dose of IV lasix. -New-onset atrial fibrillation with RVR currently maintaining sinus rhythm patient has been transitioned off IV cardizem and transitioned to atenolol. -Uncontrolled hypertension: Increase hydralazine and continue to monitor -Mildly elevated troponin secondary to atrial fibrillation and hypoxemia -Hyponatremia from poor oral intake improved with IV fluids Hyperglycemia History of COPD Former smoker Full Code DVT prophylaxis: Eliquis GI prophylaxis: protonix PT/OT evaluation and discharge planning. Plan Patient has been evaluated by cardiology and patient has agreed to an increase in hydralazine dosing. Today her blood pressure is elevated in the 200s systolic. She would like to be discharge on current blood pressure medications and to see her family doctor which she has an appointment tomorrow at 230. She has evidence of vascular congestion on xray which she has hydrated on admission. Recommending patient to receive a dose of IV lasix and if blood pressure has improved possible discharge home this afternoon. The impression and plan of care has been dictated by Monserrat Giordano, Prac titioner as directed. Dr. Oleg MD I have performed a history and physical examination and medical decision making of this patient, discussed the same with the dictator, and agree with the dictators assessment and plan as written, documented as a scribe. Based on total visit time, I have performed more than 50% of this visit. Objective - Vital Signs Vital signs: Vital Signs Temp 97.7 F 08/01/22 08:00 Pulse 92 08/01/22 08:00 Resp 14 08/01/22 08:00 BP 200/108 08/01/22 08:00 Pulse Ox 91 L 08/01/22 08:32 FiO2 Intake & Output 07/31/22 08/01/22 08/01/22 18:59 06:59 18:59 Intake Total 868 Balance 868 Intake: Oral 868 Other: Voiding Method Bedside Commode Bedside Commode # Voids 3 2 # Bowel Movements 2 - Labs CBC & Chem 7: 07/30/22 06:16 08/01/22 08:23 Labs: Abnormal Lab Results - Last 24 Hours (Table) 07/31/22 07/31/22 07/31/22 Range/Units 11:27 16:31 20:12 Sodium (137-145) mmol/L Chloride (98-107) mmol/L Carbon Dioxide (22-30) mmol/L Creatinine (0.52-1.04) mg/dL Glucose (74-99) mg/dL POC Glucose (mg/dL) 141 H 115 H 156 H (70-110) mg/dL Calcium (8.4-10.2) mg/dL 08/01/22 08/01/22 Range/Units 06:08 08:23 Sodium 132 L (137-145) mmol/L Chloride 96 L (98-107) mmol/L Carbon Dioxide 33 H (22-30) mmol/L Creatinine 0.51 L (0.52-1.04) mg/dL Glucose 142 H (74-99) mg/dL POC Glucose (mg/dL) 138 H (70-110) mg/dL Calcium 8.2 L (8.4-10.2) mg/dL Assessment and Plan Time with Patient: Less than 30
[2022-08-01 15:48] VITALS: BP 229/106
--- NOTE | 2022-08-01 16:33 | P.DS ---
Providers Date of admission: 07/29/22 09:44 Attending physician: Mónica Dejesus Consults: 07/29/22 09:41 Consult Physician Routine Consulting Provider: [facility] Consult Reason/Comments: new t wave inversions Do you want consulting provider notified?: Yes Primary care physician: Stated None Hospital Course: Final Diagnosis -Acute on chronic hypercapnic and hypoxic respiratory failure secondary to influenza A and COPD exacerbation patient will be continued on Tamiflu and transitioned to oral steroids today -Volume overload likely from IV fluids which have been stopped and patient will be given a dose of IV lasix. Recommending echocardiogram -New-onset atrial fibrillation with RVR currently maintaining sinus rhythm patient has been transitioned off IV cardizem and transitioned to atenolol. -Uncontrolled hypertension: Increase hydralazine and continue to monitor -Mildly elevated troponin secondary to atrial fibrillation and hypoxemia -Hyponatremia from poor oral intake improved with IV fluids Hyperglycemia History of COPD Former smoker Full Code Discharge Disposition Patient has left against medical advice on 08/01/2022. Patient had refused IV lasix and removed her own IV. She was found to be likely in acute CHF on chest xray. Blood pressure 246/112 and patient refusing to take additional blood pressure lowering medications secondary to multiple allergies and reporting what has worked for her in the past. Recommending echocardiogram and close follow up with primary doctor, cardiology and pulmonary on discharge. Hospital Course This is a 72 year old female who is admitted for dyspnea and found to be in atrial fibrillation new onset and diagnosed with influenza A. She has had multiple hospital stays over the last month for COPD/respiratory failure and continues on oxygen which has been already set up at home. This admission she was treated for Influenza A with tamiful and IV solumedrol and started on anticoagulation for atrial fibrillation. She has multiple allergies to cardiac medications and has been difficult to treat her blood pressure this admission. She was evaluated by cardiology. Today her blood pressure is noted to be in the 200/100s which has increased up to 246/112. Patient is educated on the risks of untreated high blood pressure including stroke. She has agreed to take hydralazine 50 mg QID however is requesting additional lisinopril which she takes 40 mg daily and patient wants to take an additional 20 mg at HS. This was discussed in detail the risk of taking additional lisinopril and medically is not recommended. Patient was treated with IV fluids secondary to dehydration and poor oral intake on admission with close monitoring. Sodium was found to be low on admission which had initially improved and than worsened with continued IV fluids. Fluids were discontinued and chest xray revealing cardiomegaly, pulmonary vascular congestion, and bilateral pleural effusions possible acute CHF. and COPD changes. Patient was recommended to take a dose of IV lasix. However she removed her own IV access and refused dose of lasix and any additional medications to lower blood pressure. Patient left this facility against medical advice. She has a follow up appointment with her primary provider Dr. Nino Awad tomorrow 08/02/2022. Thank you for allowing us to participate in the care of this patient. The impression and plan of care has been dictated by Monserrat Giordano, Nurse Practitioner as directed. Dr. Oleg MD I have performed a history and physical examination and medical decision making of this patient, discussed the same with the dictator, and agree with the dictators assessment and plan as written, documented as a scribe. Based on total visit time, I have performed more than 50% of this visit. Patient Condition at Discharge: Undetermined Plan - Discharge Summary Discharge Rx Participant: Yes New Discharge Prescriptions: New Apixaban [Eliquis] 5 mg PO BID #60 tab predniSONE 0 mg PO DIRECTED 16 Days #36 tab Oseltamivir [Tamiflu] 75 mg PO Q12HR 2 Days #4 cap carvediloL [Coreg*] 25 mg PO BID #120 tablet hydrALAZINE HCL [Apresoline] 50 mg PO QID #120 tab Pantoprazole [Protonix] 40 mg PO DAILY #30 tab guaiFENesin SYRUP 100MG/5ML [Robitussin] 200 mg PO Q6HR PRN ml PRN Reason: Cough Acetaminophen Tab [Tylenol] 650 mg PO Q6HR PRN tab PRN Reason: Fever And/ Or Pain Continue Albuterol Inhaler [Ventolin Hfa Inhaler] 1 - 2 puff INHALATION RT-Q6H PRN PRN Reason: Shortness Of Breath Nystatin 100,000 Unit/ml Susp [Mycostatin Oral Susp] 5 ml PO QID diphenhydrAMINE [Benadryl] 25 mg PO TID PRN cap PRN Reason: Allergy Symptoms Nitroglycerin Sl Tabs [Nitrostat] 0.4 mg SUBLINGUAL Q5M PRN #40 tab PRN Reason: CHEST PAIN lisinopriL 40 mg PO DAILY Albuterol Nebulized [Ventolin Nebulized] 2.5 mg INHALATION RT-Q4H PRN PRN Reason: Shortness Of Breath Or Wheezing Budesonide-Formot 160-4.5 Mcg [Symbicort 160-4.5 Mcg Inhaler] 2 puff INHALATION RT-BID #1 each Benzocaine/Menthol Lozeng [Cepacol lozenge] 1 lozenge MUCOUS MEM Q4HR PRN PRN Reason: Cough Discontinued hydrALAZINE HCL [Apresoline] 50 mg PO TID #90 tab cilostazoL [Pletal] 100 mg PO BID Aspirin EC [Ecotrin Low Dose] 81 mg PO DAILY Discharge Medication List Albuterol Inhaler [Ventolin Hfa Inhaler] 1 - 2 puff INHALATION RT-Q6H PRN 04/17/16 [History] Albuterol Nebulized [Ventolin Nebulized] 2.5 mg INHALATION RT-Q4H PRN 07/25/22 [History] Nystatin 100,000 Unit/ml Susp [Mycostatin Oral Susp] 5 ml PO QID 07/25/22 [History] lisinopriL 40 mg PO DAILY 07/25/22 [History] Budesonide-Formot 160-4.5 Mcg [Symbicort 160-4.5 Mcg Inhaler] 2 puff INHALATION RT-BID #1 each 07/26/22 [Rx] Nitroglycerin Sl Tabs [Nitrostat] 0.4 mg SUBLINGUAL Q5M PRN #40 tab 07/26/22 [Rx] diphenhydrAMINE [Benadryl] 25 mg PO TID PRN cap 07/26/22 [Rx] Benzocaine/Menthol Lozeng [Cepacol lozenge] 1 lozenge MUCOUS MEM Q4HR PRN 07/29/22 [History] Acetaminophen Tab [Tylenol] 650 mg PO Q6HR PRN tab 08/01/22 [Rx] Apixaban [Eliquis] 5 mg PO BID #60 tab 08/01/22 [Rx] Oseltamivir [Tamiflu] 75 mg PO Q12HR 2 Days #4 cap 08/01/22 [Rx] Pantoprazole [Protonix] 40 mg PO DAILY #30 tab 08/01/22 [Rx] carvediloL [Coreg*] 25 mg PO BID #120 tablet 08/01/22 [Rx] guaiFENesin SYRUP 100MG/5ML [Robitussin] 200 mg PO Q6HR PRN ml 08/01/22 [Rx] hydrALAZINE HCL [Apresoline] 50 mg PO QID #120 tab 08/01/22 [Rx] predniSONE 0 mg PO DIRECTED 16 Days #36 tab 08/01/22 [Rx] Follow up Appointment(s)/Referral(s): Олег Hill MD [STAFF PHYSICIAN] - 08/10/22 9:45 am Nino Awad DO [Doctor of Osteopathic Medicine] - 08/01/22 (keep appointment for tomorrow. ) Discharge Disposition: Left Against Medical Advice
[2022-08-02] MEDS ORDERED: predniSONE 20 MG TAB PO SCH (09:00)
--- NOTE | 2022-08-03 19:41 | CDI ---
Documentation Clarification Form Date: 08/03/2022 7:25:28 PM From: Ryanne Jackson Phone: Admit Date: 07/29/2022 9:44:00 AM Patient Name: Keri Newton Visit Number: [id number] Discharge Date: 08/01/2022 3:38:00 PM ATTENTION: The Clinical Documentation Specialists (CDI) and [facility] Coding Staff appreciate your assistance in clarifying documentation. Please respond to the clarification below the line at the bottom and electronically sign. The CDI & [facility] Coding staff will review the response and follow-up if needed. Please note: Queries are made part of the Legal Health Record. If you have any questions, please contact the author of this message via ITS. Dr. Mónica Dejesus Your patient has the documented diagnosis of unspecified acute CHF per DC Summary. Additional information regarding the acuity and type of CHF is requested. History/Risk Factors: 72yo F, ACH/HRF, influenzaA, AECOPD, Volume overload, PAF, Uncontrolled HTN, elevated troponin, hyponatremia, hyperglycemia, Hx smoker Clinical Indicators: VS/Pulse OX: 94-97 07/29 Echocardiogram Results: echo recently that showed normal LV function with [id number] aortic regurgitation. Chest X Ray: Cardiomegaly, pulmonary vascularcongestionandbilateral pleural effusions. Correlate with BNP forcongestive heart failure. Treatment: Volume overloadlikely from IV fluids which have been stopped and patient will be given a dose of IV Lasix. In your professional opinion, can you please clarify the acuity and type of CHF if known? [ ] Acute Systolic Heart Failure (reduced EF) [ ] Acute on Chronic Systolic Heart Failure (reduced EF) [ ] Acute Diastolic Heart Failure (preserved EF) [ ] Acute on Chronic Diastolic Heart Failure (preserved EF) [ ] Acute Systolic & Diastolic Heart Failure [ ] Acute on Chronic Heart Failure Systolic & Diastolic Heart Failure [ ] Other, please specify [ x ] Unable to determine (Template Last Revised: August 2020) MTDD
== END 2022-08-01 15:38 | disposition left against medical advice (07) | DRG 193 ==
LOC: EC 06:37 → 3SCARD 09:44
PROVIDERS: ADMIT Internal Medicine; ATTEND Internal Medicine
DX: J10.1 Influenza due to other identified influenza virus with other respiratory manifestations (principal); J96.21 Acute and chronic respiratory failure with hypoxia; J96.22 Acute and chronic respiratory failure with hypercapnia; J44.1 Chronic obstructive pulmonary disease with (acute) exacerbation; E87.1 Hypo-osmolality and hyponatremia; I11.0 Hypertensive heart disease with heart failure; E87.8 Other disorders of electrolyte and fluid balance, not elsewhere classified; I50.9 Heart failure, unspecified; E86.0 Dehydration; I48.0 Paroxysmal atrial fibrillation; I35.1 Nonrheumatic aortic (valve) insufficiency; I73.9 Peripheral vascular disease, unspecified; R00.0 Tachycardia, unspecified; I25.10 Atherosclerotic heart disease of native coronary artery without angina pectoris; R73.9 Hyperglycemia, unspecified; T50.916A Underdosing of multiple unspecified drugs, medicaments and biological substances, initial encounter; Z53.29 Procedure and treatment not carried out because of patient's decision for other reasons; Z20.822 Contact with and (suspected) exposure to COVID-19; Z87.891 Personal history of nicotine dependence; Z91.14 Patient's other noncompliance with medication regimen; Z28.310 Unvaccinated for COVID-19; Z79.899 Other long term (current) drug therapy; Z79.02 Long term (current) use of antithrombotics/antiplatelets; Z79.51 Long term (current) use of inhaled steroids; Z88.8 Allergy status to other drugs, medicaments and biological substances; Z88.5 Allergy status to narcotic agent; Z88.2 Allergy status to sulfonamides; Z91.048 Other nonmedicinal substance allergy status; Z87.820 Personal history of traumatic brain injury; Z98.61 Coronary angioplasty status
CPT/HCPCS: 36415; 71046; 80048; 80053; 81003; 82803; 83605; 83735; 84484; 85025; 85610; 85730; 87636; 93005; 94640; 94760; 96361; 96374; 96375; 99285